=== PATIENT | male | born 1975 | race Caucasian/White ===

== ENCOUNTER 2021-08-02 14:48 | Inpatient (IN) | payer OTHER, SELFPAY ==
[2021-08-02] VITALS (7 sets, daily range): BP systolic 160–177; BP diastolic 71–94; PULSE 61–71; RESP 12–20; TEMP 36.6–37.1; O2SAT 98–100; BMI 35.4
--- NOTE | ~2021-08-02 | CT_ITS ---
EXAMINATION: CT HEAD WITHOUT CONTRAST CLINICAL INFORMATION: Multiple syncopal episodes COMPARISON: None TECHNIQUE: Contiguous axial imaging was performed from the skull base to vertex without intravenous administration of contrast. This CT examination was performed using dose optimization techniques as appropriate, variously including the following: *Automated exposure control *Adjustment of mA and/or kV according to patient size (this includes techniques or standardized protocols for targeted exams where dose is matched to indication/reason for exam; i.e. extremities or head) *Use of iterative reconstruction technique DLP: 788 mGy-cm FINDINGS: There is no evidence of acute intracranial hemorrhage or territorial infarction. No abnormal mass effect or midline shift is seen. Handy to white matter differentiation is well preserved. No extra-axial fluid collections are identified. The ventricles are normal in size. There is no abnormal attenuation within the brain parenchyma. The osseous structures and soft tissues are normal. The mastoid air cells and visualized portions of the paranasal sinuses are well aerated. CT/CT head/brain wo con IMPRESSION: No acute intracranial pathology.
--- NOTE | ~2021-08-02 | XR_ITS ---
EXAMINATION: XR CHEST CLINICAL INFORMATION: Near syncope COMPARISON: None TECHNIQUE: 2 views of the chest were obtained. FINDINGS: No significant abnormality is noted involving the heart, lungs, mediastinum, bony thorax or soft tissues. XR/XR chest 2V IMPRESSION: Unremarkable examination.
--- NOTE | 2021-08-02 15:02 | ECG_ITS ---
Test Reason : SYNCOPE Blood Pressure : / mmHG Vent. Rate : 067 BPM Atrial Rate : 067 BPM P-R Int : 180 ms QRS Dur : 092 ms QT Int : 390 ms P-R-T Axes : 027 007 068 degrees QTc Int : 412 ms Normal sinus rhythm Normal ECG When compared with ECG of 15-JUL-2006 10:38, No significant change was found Referred By: Generic ED Physician Electronically Signed By:ANNA QUIÑONEZ
[2021-08-02 15:32] LABS: MANUAL DIFF FLAG NO
[2021-08-02 15:35] LABS: Basophils Absolute Auto 0.1 X10*3/uL (0.0-0.2); Basophils Percent Auto 0.8 % (0-2); Eosinophils Absolute Auto 0.4 X10*3/uL (0.0-0.4); Eosinophils Percent Auto 4.3 % (0-4); Hematocrit 29.7 % (42.0-52.0); Hemoglobin 8.1 g/dl (14.0-18.0); Imm Gran Abs Auto 0.05 X10*3/uL (0.00-0.03); Imm Gran Pct Auto 0.6 % (0.0-0.4); Lymphocytes Absolute Auto 1.8 X10*3/uL (1.2-4.9); Lymphocytes Percent Auto 21.2 % (20-40); Mean Corpuscular HGB Conc 27.3 g/dl (31.0-36.0); Mean Corpuscular Hemoglobin 20.5 pg (27.0-33.0); Mean Corpuscular Volume 75.2 fL (80.0-98.0); Mean Platelet Volume 8.6 fL (9.4-12.4); Monocytes Absolute Auto 1.2 X10*3/uL (0.1-1.2); Monocytes Percent Auto 14.7 % (2-11); Neutrophils Percent Auto 58.4 % (45-73); Platelet Count 525 X10*3/uL (160-400); Red Blood Count 3.95 X10*6/uL (4.60-5.80); White Blood Count 8.5 X10*3/uL (4.8-10.8)
[2021-08-02 15:46] LABS: Anion Gap 13 (12-20); Blood Urea Nitrogen 10 mg/dL (9-16); Calcium 9.5 mg/dL (8.4-10.2); Carbon Dioxide 25 mmol/L (22-29); Chloride 104 mmol/L (96-108); Creatinine Clr Calc Pharmacy 130.8; Estimated Glomerular Filt Rate > 60; Glucose Random 105 mg/dL (60-115); Potassium 4.8 mmol/L (3.3-5.1); Sodium 137 mmol/L (135-145)
[2021-08-02 15:53] LABS: Troponin-I High Sensitivity < 3.5 ng/L (<3.5-35.0)
--- NOTE | 2021-08-02 18:19 | ED.SYNCOPE ---
HPI - Syncope General Chief Complaint: Syncope Stated Complaint: passing out/heart rate low Time Seen by Provider: 08/02/21 18:19 Source: patient Mode of arrival: ambulatory Limitations: no limitations History of Present Illness HPI narrative: This is a 45-year-old male no significant medical history presenting to the emergency department with complaints of near syncopal episodes multiple times per week for the last couple months. Patient tells me that he had an episode this morning. He tells me he thinks sometimes hot showers trigger these episodes. He tells me the last episode before this one was when he was snow blowing. tells me he begins to feel weak and faint and he usually lowers himself to the ground he tells me does not quite lose consciousness but he feels very very weak and like he is going to fall. He tells me that the only preceding symptom is test weakness he denies chest pain or shortness of breath. Patient reports that this happens anywhere between 2-3 times per week and has been happening more frequently than usual. Patient also mentions that over the past few months he feels as though he has become more short of breath than usual, particularly with exertion. He does not experience shortness of breath at rest. He has mentioned this to his primary care provider however he has not had a full workup done for this in the past. He denies any significant family or personal cardiac history. No seizure hx. He tells me that at this time he has no complaints. MD complaint: felt faint and almost passed out Onset (ago): month(s) (2) Prodromal symptoms: lightheaded and other (weakness) Witnessed: No Context: other Injuries sustained associated with event: none Current symptoms: none History: previous syncopal episode Treatments prior to arrival: none Related Data Allergies Allergy/AdvReac Type Severity Reaction Status Date / Time erythromycin base Allergy Severe RASH Unverified 02/03/20 16:18 [ERYTHROMYCIN BASE] Penicillins [PENICILLINS] Allergy Severe RASH Unverified 02/03/20 16:18 amoxicillin Allergy Unknown rash Verified 07/26/15 00:00 penicillin V Allergy Unknown rash Verified 07/26/15 00:00 Erythromycin Allergy Unknown rash Uncoded 07/26/15 00:00 Review of Systems Review of Systems: Constitutional : No Weight loss, No Fever, No Chills, No Fatigue, No Malaise ENT/Mouth : No sore throat, No Rhinorrhea Eyes: No Eye Pain, No Swelling, No Redness Cardiovascular : No Chest Pain, No SOB, No Dyspnea on Exertion, No Orthopnea, No Edema, No Palpitations Respiratory : No Cough, No Sputum, No Wheezing Gastrointestinal : No Nausea, No Vomiting, No Diarrhea, No Constipation, No abdominal Pain, No Hematochezia, No Melena Genitourinary : No Dysuria, No Urinary Frequency, No Hematuria, Musculoskeletal : No joint pain, No Myalgias, No Joint Swelling Skin : No Skin Lesions, No rash Neuro : No Weakness, No Numbness, No Dizziness, No Headache Psych : No Anxiety/Panic, No Depression All other systems reviewed and are negative Yes all other systems are reviewed and are negative [facility] Past Medical History Attestation statement: The following information was validated with the patient. Source: old records reviewed and nursing notes reviewed Medical History (Updated 08/02/21 @ 23:55 by BILL Wynn) HTN (hypertension) Syncopal episodes Social History Social History Alcohol intake: current Alcohol intake frequency: holidays/special occasions only Patient Tobacco Use Status: Never used Tobacco Use of substances other than those prescribed or required for medical reasons: No Advance Directives: Yes Advance Directives Information Provided: No Advance Directives on File: No Physical Exam Vital Signs: Vital Signs: Last Vital Signs Temp 98.8 F 08/02/21 22:51 Pulse 62 08/02/21 22:51 Resp 15 08/02/21 22:51 BP 177/85 H 08/02/21 22:51 Pulse Ox 98 08/02/21 22:51 BMI result Body Mass Index 35.4 Vital signs stable. Appearance: Alert.? Oriented X3.? No acute distress.? Head: Normocephalic, atraumatic, no step-offs or deformities Eyes: Pupils equal, round and reactive to light.? ENT: Pharynx normal.? Neck: Normal inspection.? Neck supple.? CVS: Normal heart rate and rhythm.? Pulses normal.? Respiratory: No respiratory distress.? Breath sounds normal.? Abdomen: Soft and nontender.? Skin: Skin warm and dry.? Normal skin color.? Normal skin turgor.? Extremities: No lower extremity edema.? No calf ttp. 5/5 strength to bilateral upper and lower extremities Back: No midline tenderness, no C-spine tenderness, full range of motion, no CVA tenderness bilaterally Neuro: Oriented X 3.? No motor deficit.? No sensory deficit. CN 2-12 intact . Normal [id number], [id number], normal tandem gait. Course Reevaluation(s) Reevaluation #1: Laboratory study show a microcytic anemia. Patient tells me that he has had this before. Chemistry with no acute electrolyte abnormalities. Urine clean. Urine toxicology with no acute findings. CT of the head with no acute findings. I will do a OBS Spoke to my attending about this who suggests patient be admitted. Time: 21:02 Reevaluation #2: OBS +. Patient showed labs on his phone it appears as though his anemia is worse than usual. Will transfuse with 1 unit of packed red blood cells. Patient will be admitted to the hospitalist team. Dr. Townsend for anemia, + occult blood, pre syncope, HAMILTON. Time: 23:55 MDM - Syncope MDM Narrative Medical decision making narrative: 1821 45 yo m pmhx htn presents w/ frequent syncopal episodes PE benign. Normal strength, normal cerebellar function, normal gait. Unlikely posterior stroke or ICH. Plan- labs imaging, obs Medical Records Attestation: I reviewed the patient's medical records. Lab Data Attestation: I reviewed the patient's lab results. Result diagrams: 08/02/21 15:26 08/02/21 15:26 Labs: Lab Results 08/02/21 08/02/21 08/02/21 Range/Units 15:26 15:26 15:26 WBC 8.5 (4.8-10.8) X10*3/uL RBC 3.95 L (4.60-5.80) X10*6/uL Hgb 8.1 L (14.0-18.0) g/dl Hct 29.7 L (42.0-52.0) % MCV 75.2 L (80.0-98.0) fL MCH 20.5 L (27.0-33.0) pg MCHC 27.3 L (31.0-36.0) g/dl RDW 15.0 (11.0-16.0) % Plt Count 525 H (160-400) X10*3/uL MPV 8.6 L (9.4-12.4) fL Immature Gran % (Auto) 0.6 H (0.0-0.4) % Neut % (Auto) 58.4 (45-73) % Lymph % (Auto) 21.2 (20-40) % [place] % (Auto) 14.7 H (2-11) % Eos % (Auto) 4.3 H (0-4) % Baso % (Auto) 0.8 (0-2) % Lymph # (Auto) 1.8 (1.2-4.9) X10*3/uL [place] # (Auto) 1.2 (0.1-1.2) X10*3/uL Eos # (Auto) 0.4 (0.0-0.4) X10*3/uL Baso # (Auto) 0.1 (0.0-0.2) X10*3/uL Abs Immat Gran (auto) 0.05 H (0.00-0.03) X10*3/uL Absolute Neuts (auto) 5.0 (2.0-8.3) x10*3/uL Absolute Nucleated RBC 0.000 (0.0-0.012) X10*3/uL Nucleated RBC % (auto) 0.0 (0.0-0.2) /100WBC Sodium 137 (135-145) mmol/L Potassium 4.8 (3.3-5.1) mmol/L Chloride 104 (96-108) mmol/L Carbon Dioxide 25 (22-29) mmol/L Anion Gap 13 (12-20) BUN 10 (9-16) mg/dL Creatinine 0.92 (0.5-1.4) mg/dL Estim Creat Clear Calc 130.8 Estimated GFR > 60 Random Glucose 105 (60-115) mg/dL Calcium 9.5 (8.4-10.2) mg/dL Troponin I High Sens < 3.5 (<3.5-35.0) ng/L Urine Color Urine Appearance Urine pH (5.0-8.0) Ur Specific [place] (1.005-1.025) Urine Protein (NEG-TRACE) MG/DL Urine Glucose (UA) (NEG) MG/DL Urine Ketones (NEG) MG/DL Urine Blood (NEG) Urine Nitrite (NEG) Ur Leukocyte Esterase (NEG) Urine RBC (0) /HPF Urine WBC (0-4) /HPF Ur Squamous Epith Cells /LPF Urine Bacteria /LPF Stool Occult Blood (NEGATIVE) Urine Opiates Screen (Not Detect) Urine Fentanyl Screen (Not Detect) Ur Barbiturates Screen (Not Detect) Ur Phencyclidine Scrn (Not Detect) Ur Amphetamines Screen (Not Detect) U Benzodiazepines Scrn (Not Detect) Urine Cocaine Screen (Not Detect) U Marijuana (THC) Screen (Not Detect) 08/02/21 08/02/21 08/02/21 Range/Units 19:23 19:23 23:32 WBC (4.8-10.8) X10*3/uL RBC (4.60-5.80) X10*6/uL Hgb (14.0-18.0) g/dl Hct (42.0-52.0) % MCV (80.0-98.0) fL MCH (27.0-33.0) pg MCHC (31.0-36.0) g/dl RDW (11.0-16.0) % Plt Count (160-400) X10*3/uL MPV (9.4-12.4) fL Immature Gran % (Auto) (0.0-0.4) % Neut % (Auto) (45-73) % Lymph % (Auto) (20-40) % [place] % (Auto) (2-11) % Eos % (Auto) (0-4) % Baso % (Auto) (0-2) % Lymph # (Auto) (1.2-4.9) X10*3/uL [place] # (Auto) (0.1-1.2) X10*3/uL Eos # (Auto) (0.0-0.4) X10*3/uL Baso # (Auto) (0.0-0.2) X10*3/uL Abs Immat Gran (auto) (0.00-0.03) X10*3/uL Absolute Neuts (auto) (2.0-8.3) x10*3/uL Absolute Nucleated RBC (0.0-0.012) X10*3/uL Nucleated RBC % (auto) (0.0-0.2) /100WBC Sodium (135-145) mmol/L Potassium (3.3-5.1) mmol/L Chloride (96-108) mmol/L Carbon Dioxide (22-29) mmol/L Anion Gap (12-20) BUN (9-16) mg/dL Creatinine (0.5-1.4) mg/dL Estim Creat Clear Calc Estimated GFR Random Glucose (60-115) mg/dL Calcium (8.4-10.2) mg/dL Troponin I High Sens (<3.5-35.0) ng/L Urine Color YELLOW Urine Appearance CLEAR Urine pH 6.0 (5.0-8.0) Ur Specific [place] <= 1.005 (1.005-1.025) Urine Protein NEG (NEG-TRACE) MG/DL Urine Glucose (UA) NEG (NEG) MG/DL Urine Ketones NEG (NEG) MG/DL Urine Blood NEG (NEG) Urine Nitrite NEG (NEG) Ur Leukocyte Esterase NEG (NEG) Urine RBC 0 (0) /HPF Urine WBC 0 (0-4) /HPF Ur Squamous Epith Cells TRACE /LPF Urine Bacteria NONE /LPF Stool Occult Blood POSITIVE (NEGATIVE) Urine Opiates Screen Not Detected (Not Detect) Urine Fentanyl Screen Not Detected (Not Detect) Ur Barbiturates Screen Not Detected (Not Detect) Ur Phencyclidine Scrn Not Detected (Not Detect) Ur Amphetamines Screen Not Detected (Not Detect) U Benzodiazepines Scrn Not Detected (Not Detect) Urine Cocaine Screen Not Detected (Not Detect) U Marijuana (THC) Screen Not Detected (Not Detect) Discharge Plan Discharge Clinical Impression: Pre-syncope, Guaiac positive stools, HAMILTON (dyspnea on exertion), Anemia Patient Disposition: Admitted As Inpatient Additional Instructions: Take your medications as prescribed. If you were prescribed antibiotics today, it is important that you take your medication to their entirety, do not skip any doses, do not finish them early. Follow-up with your primary care provider this week. Please follow up with Neurology as soon as possible. It is not safe for you to drive if you are having these episodes. Please refrain from driving until cleared by Neurology. Return to the emergency department with new or worsening symptoms. Such as fevers, chills, chest pain, shortness of breath, nausea, vomiting, dizziness, headache, vision changes, lethargy In case of emergency call 911
[2021-08-02 19:33] LABS: Appearance Urine CLEAR; Color Urine YELLOW; Glucose Urine UA NEG (NEG); Leukocyte Esterase Urine NEG (NEG); Nitrite Urine NEG (NEG); Specific Gravity - Urine <= 1.005 (1.005-1.025); Urine Blood NEG (NEG); Urine Ketones NEG (NEG); Urine Protein NEG (NEG-TRACE)
[2021-08-02 19:43] LABS: RBC Urine 0 /HPF (0); Squamous Epithelial Cell Urine TRACE /LPF; WBC Urine 0 /HPF (0-4)
[2021-08-02 19:47] LABS: Amphetamine Screen Urine Not Detected (Not Detect); Barbiturates, Urine Not Detected (Not Detect); Benzodiazepines Screen Urine Not Detected (Not Detect); Cannabinoid Screen Urine Not Detected (Not Detect); Cocaine Screen Urine Not Detected (Not Detect); Fentanyl, urine Not Detected (Not Detect); Opiate Screen Urine Not Detected (Not Detect); Phencyclidine Screen Urine Not Detected (Not Detect)
[2021-08-02 23:39] LABS: OBS Int Ctl Valid YES; OBS1 POSITIVE (NEGATIVE)
--- NOTE | 2021-08-02 23:40 | P.HPHOSP_ITS ---
History of Present Illness Date of Service: 08/02/21 Chief Complaint: HAMILTON 45-year-old male with a past medical history of hypertension, peptic ulcer disease presented to the hospital with a chief complaint of shortness of breath. Patient reported that over the past few weeks he has been having shortness of breath especially on exertion; mentioned that about 2 weeks ago he was blowing snow and felt very a tired, exhausted, short of breath; he went back into the house and rested with improvement in tiredness/shortness of breath. Over the past couple days he noted increased shortness of breath especially on exertion. Denies any cough or sputum production. Denies any chest pain palpitations lightheadedness or dizziness. Denies any blood in the stool. Denies any nausea vomiting or diarrhea. Review of all other systems is negative except mentioned above ER course: Per ER team patient's EKG was nonischemic, troponin negative; on labs noted to have hemoglobin of 8.1; stool guaiac was positive; ER team has ordered 1 unit of blood. [facility] Medical History (Updated 08/02/21 @ 23:55 by BILL Wynn) HTN (hypertension) Syncopal episodes Pertinent family history: Reviewed Social History Alcohol intake: current Alcohol intake frequency: holidays/special occasions only Patient Tobacco Use Status: Never used Tobacco Use of substances other than those prescribed or required for medical reasons: No Advance Directives: Yes Advance Directives Information Provided: No Advance Directives on File: No Meds Allergies Allergy/AdvReac Type Severity Reaction Status Date / Time erythromycin base Allergy Severe RASH Unverified 02/03/20 16:18 [ERYTHROMYCIN BASE] Penicillins [PENICILLINS] Allergy Severe RASH Unverified 02/03/20 16:18 amoxicillin Allergy Unknown rash Verified 07/26/15 00:00 penicillin V Allergy Unknown rash Verified 07/26/15 00:00 Erythromycin Allergy Unknown rash Uncoded 07/26/15 00:00 Active Medications: Current Medications Acetaminophen (Acetaminophen 325 Mg Tablet) 650 mg PO Q6H PRN PRN Reason: Pain, Mild (Pain Scale 1-3) Melatonin (Melatonin 3 Mg Tablet) 6 mg PO BEDTIME PRN PRN Reason: Insomnia Pantoprazole Sodium (Pantoprazole Sodium 40 Mg/10 Ml Vial) 40 mg IVPUSH DAILY@0630 [place] Senna (Sennosides 8.6 Mg Tablet) 17.2 mg PO BEDTIME PRN PRN Reason: Constipation Sodium Chloride (0.9 % Sodium Chloride Flush 3 Ml Syringe) 3 ml IVFLUSH QSHIFT [place]O Physical Exam Vital Signs and Narrative: Vital Signs: Last Vital Signs Temp 98.8 F 08/02/21 22:51 Pulse 62 08/02/21 22:51 Resp 15 08/02/21 22:51 BP 177/85 H 08/02/21 22:51 Pulse Ox 98 08/02/21 22:51 BMI result Body Mass Index 35.4 Gen: Appears be in no acute distress HEENT: NCAT, Moist mucosa. Pulmonary: Vesicular breath sounds, fair air entry CVS: Normal S1-S2 Abdomen: BS+, Soft, Nontender Extremities: Warm well perfused Neuro: Alert and awake. Results Labs CBC and Chem 7: 08/02/21 15:26 08/02/21 15:26 Labs: Laboratory Results - last 24 hr 08/02/21 08/02/21 08/02/21 15:26 15:26 19:23 MCV 75.2 L MCH 20.5 L MCHC 27.3 L RDW 15.0 Plt Count 525 H MPV 8.6 L Immature Gran % (Auto) 0.6 H Neut % (Auto) 58.4 Lymph % (Auto) 21.2 [place] % (Auto) 14.7 H Eos % (Auto) 4.3 H Baso % (Auto) 0.8 Lymph # (Auto) 1.8 [place] # (Auto) 1.2 Eos # (Auto) 0.4 Baso # (Auto) 0.1 Abs Immat Gran (auto) 0.05 H Absolute Neuts (auto) 5.0 Absolute Nucleated RBC 0.000 Nucleated RBC % (auto) 0.0 Anion Gap 13 Estim Creat Clear Calc 130.8 Estimated GFR > 60 Random Glucose 105 Calcium 9.5 Urine Color YELLOW Urine Appearance CLEAR Urine pH 6.0 Ur Specific [place] <= 1.005 Urine Protein NEG Urine Glucose (UA) NEG Urine Ketones NEG Urine Blood NEG Urine Nitrite NEG Ur Leukocyte Esterase NEG Urine RBC 0 Urine WBC 0 Ur Squamous Epith Cells TRACE Urine Bacteria NONE Urine Opiates Screen Urine Fentanyl Screen Ur Barbiturates Screen Ur Phencyclidine Scrn Ur Amphetamines Screen U Benzodiazepines Scrn Urine Cocaine Screen U Marijuana (THC) Screen 08/02/21 19:23 MCV MCH MCHC RDW Plt Count MPV Immature Gran % (Auto) Neut % (Auto) Lymph % (Auto) [place] % (Auto) Eos % (Auto) Baso % (Auto) Lymph # (Auto) [place] # (Auto) Eos # (Auto) Baso # (Auto) Abs Immat Gran (auto) Absolute Neuts (auto) Absolute Nucleated RBC Nucleated RBC % (auto) Anion Gap Estim Creat Clear Calc Estimated GFR Random Glucose Calcium Urine Color Urine Appearance Urine pH Ur Specific [place] Urine Protein Urine Glucose (UA) Urine Ketones Urine Blood Urine Nitrite Ur Leukocyte Esterase Urine RBC Urine WBC Ur Squamous Epith Cells Urine Bacteria Urine Opiates Screen Not Detected Urine Fentanyl Screen Not Detected Ur Barbiturates Screen Not Detected Ur Phencyclidine Scrn Not Detected Ur Amphetamines Screen Not Detected U Benzodiazepines Scrn Not Detected Urine Cocaine Screen Not Detected U Marijuana (THC) Screen Not Detected Imaging Radiologist's Impressions: Impressions Chest X-Ray 08/02/21 15:14 IMPRESSION: Unremarkable examination. Head CT 08/02/21 19:48 IMPRESSION: No acute intracranial pathology. Assessment and Plan (1) HAMILTON (dyspnea on exertion): Status: Acute (2) Anemia: Status: Acute (3) Guaiac positive stools: Status: Acute Plan 45-year-old male with a past medical history of hypertension, peptic ulcer disease, hernia presented to the hospital with a chief complaint of shortness of breath/ dyspnea on exertion. Noted to have anemia with guaiac-positive stool. Admitted for further management. Anemia: Symptomatic. Likely in the setting of GI bleed. Stool guaiac was positive. patient's baseline hemoglobin was 15 as noted from the labs in November of 2020. on presentation patient's hemoglobin is 8.1 Patient being transfused 1 unit of blood severe iron deficiency: On iron studies noted iron 16, TIBC 524, % saturation 3, ferritin 3. Patient being transfused 1upRBC currently. Patient would benefit iron sucrose IV infusion. Spoke to pharmacist overnight-> recs to be ordered in am. will defer to day hospitalist. mild thrombocytosis: Likely in setting of iron deficiency. Monitor platelet count. Dyspnea on exertion: initial EKG nonischemic troponin negative Cycle cardiac enzymes Echocardiogram cardiology consult History of hypertension: Patient's blood pressure is slightly on the higher side on presentation. 132/85. Continue home lisinopril 10mg DVT prophylaxis: SCD boots Code status: Full code Quality Stroke Does the patient have a stroke diagnosis?: No VTE Prior VTE?: No VTE Risk Level:: Medical - moderate - high VTE Device Contraindication: N/A - Device Ordered VTE Drug Contraindication: Treatment Not Indicated
[2021-08-03] VITALS (16 sets, daily range): BP systolic 124–165; BP diastolic 60–92; PULSE 56–86; RESP 13–20; TEMP 36.2–37.3; O2SAT 90–99
[2021-08-03 00:08] LABS: Iron 16 mcg/dL (45-160); Percent Iron Saturation 3 % (15-50); Total Iron Binding Capacity 524 mcg/dL (228-428); Unsaturated Iron Binding 508 ug/dL
[2021-08-03 00:40] LABS: Ferritin 3 ng/mL (20-250)
--- NOTE | 2021-08-03 04:27 | PC.NURSE ---
PRBC UP AND RUNNING PER EMAR. PT EDUCATED ON S/S OF POSSIBLE REACTION TO BLOOD. VS OBTAINED. PT DENIES COMPLAINTS AND REMAINS A&OX3, SKIN W/D. RESPIRATIONS N/L. WILL CONTINUE TO MONITOR PT.
--- NOTE | 2021-08-03 05:52 | PC.NURSE ---
PRBC INFUSED W/O DIFFICULTY. SITE INTACT.
[2021-08-03 07:00] LABS: MANUAL DIFF FLAG NO
[2021-08-03 07:07] LABS: Basophils Absolute Auto 0.1 X10*3/uL (0.0-0.2); Basophils Percent Auto 1.2 % (0-2); Eosinophils Absolute Auto 0.4 X10*3/uL (0.0-0.4); Eosinophils Percent Auto 4.9 % (0-4); Hematocrit 33.2 % (42.0-52.0); Hemoglobin 9.3 g/dl (14.0-18.0); Imm Gran Abs Auto 0.04 X10*3/uL (0.00-0.03); Imm Gran Pct Auto 0.5 % (0.0-0.4); Lymphocytes Absolute Auto 1.8 X10*3/uL (1.2-4.9); Lymphocytes Percent Auto 20.4 % (20-40); Mean Corpuscular Hemoglobin 21.6 pg (27.0-33.0); Mean Corpuscular Volume 77.2 fL (80.0-98.0); Mean Platelet Volume 9.1 fL (9.4-12.4); Monocytes Absolute Auto 1.3 X10*3/uL (0.1-1.2); Monocytes Percent Auto 14.8 % (2-11); Neutrophils Percent Auto 58.2 % (45-73); Platelet Count 534 X10*3/uL (160-400); Red Cell Distribution Width 15.9 % (11.0-16.0); White Blood Count 8.6 X10*3/uL (4.8-10.8)
--- NOTE | 2021-08-03 07:17 | PHA.MEDREC ---
Pharmacy Consult ? Medication Reconciliation Pharmacy has reviewed the medication reconciliation completed by Anai. There are no remarkable issues for provider's attention. Zahra Fuller, PharmD
[2021-08-03 07:20] LABS: Anion Gap 12 (12-20); Blood Urea Nitrogen 11 mg/dL (9-16); Calcium 9.3 mg/dL (8.4-10.2); Carbon Dioxide 25 mmol/L (22-29); Chloride 107 mmol/L (96-108); Creatinine Clr Calc Pharmacy 122.8; Estimated Glomerular Filt Rate > 60; Glucose Random 103 mg/dL (60-115); Potassium 4.8 mmol/L (3.3-5.1); Sodium 139 mmol/L (135-145)
[2021-08-03 07:31] LABS: Troponin-I High Sensitivity 4.3 ng/L (<3.5-35.0)
--- NOTE | 2021-08-03 07:49 | P.CNGI_ITS ---
History of Present Illness Data of Consult Service Date: 08/03/21 Requesting physician: Alonso Townsend Primary Care Provider: Teri Johnson MD HPI Reason for consult: anemia, Heme positive stools ?45 YM with hypertension, peptic ulcer disease came to [facility] ED complaint of shortness of breath.? Patient reported that over the past few weeks he has been having shortness of breath especially on exertion; He mentioned that about 2 weeks ago he was blowing snow and felt very a tired, exhausted, short of breath; he went back into the house and rested with improvement in tiredness/shortness of breath.? He feels exhausted after he takes a hot shower - feels better after resting. Over the past couple days he noted increased shortness of breath especially on exertion.? Patient denies any abdominal pain, recent change in appetite, weight or bowel movements. Denies any change in stool color or blood in the stool.? Pt denies any cough or sputum production.? Denies any chest pain palpitations lightheadedness or dizziness.? Denies any nausea vomiting or diarrhea.? Patient denies major cardiac or pulmonary problems. He admits to loud snoring and denies being tested for sleep apnea Denies being on chronic anticoagulation. Patient denies smoking, he takes alcohol 2-3 beers once a week Patient has 2 children - sinus 21 and daughter is 13 years Patient denies known family history of colon polyps, colon cancer or other GI malignancies. PAST EGD/COLONOSCOPY: Pt reports having an EGD and colonoscopy x 2 in the past - last done 2 yrs ago at [facility] Per patient EGD showed an ulcer due to apsirin use - records have been requested. ER course: Per ER? team patient's EKG was nonischemic, troponin negative; on labs noted to have hemoglobin of 8.1; stool guaiac was positive; ER team has ordered 1 unit of blood. Post transfusion H & H improved to 9.3 & 33.2 Review of Systems Review of Systems: Constitutional : No Weight loss, No Fever, No Chills, No Fatigue, No Malaise ENT/Mouth : No sore throat, No Rhinorrhea Eyes: No Eye Pain, No Swelling, No Redness Cardiovascular : No Chest Pain, No SOB, No Dyspnea on Exertion, No Orthopnea, No Edema, No Palpitations Respiratory : No Cough, No Sputum, No Wheezing Gastrointestinal : No Nausea, No Vomiting, No Diarrhea, No Constipation, No abdominal Pain, No Hematochezia, No Melena Genitourinary : No Dysuria, No Urinary Frequency, No Hematuria, Musculoskeletal : No joint pain, No Myalgias, No Joint Swelling Skin : No Skin Lesions, No rash Neuro : No Weakness, No Numbness, No Dizziness, No Headache Psych : No Anxiety/Panic, No Depression All other systems reviewed and are negative Yes all other systems are reviewed and are negative [facility] Past Medical History Medical History (Updated 08/03/21 @ 10:20 by Brice Ng MD) HTN (hypertension) Syncopal episodes Social History Social History Alcohol intake: current Alcohol intake frequency: holidays/special occasions only Patient Tobacco Use Status: Never used Tobacco Advance Directives Date on File: 08/03/21 service: No Current occupational status: employed Meds Allergies Allergy/AdvReac Type Severity Reaction Status Date / Time erythromycin base Allergy Severe RASH Unverified 02/03/20 16:18 [ERYTHROMYCIN BASE] Penicillins [PENICILLINS] Allergy Severe RASH Unverified 02/03/20 16:18 amoxicillin Allergy Unknown rash Verified 07/26/15 00:00 penicillin V Allergy Unknown rash Verified 07/26/15 00:00 Erythromycin Allergy Unknown rash Uncoded 07/26/15 00:00 Active Medications: Current Medications Acetaminophen (Acetaminophen 325 Mg Tablet) 650 mg PO Q6H PRN PRN Reason: Pain, Mild (Pain Scale 1-3) Lisinopril (Lisinopril 10 Mg Tablet) 10 mg PO DAILY [facility]; Protocol Melatonin (Melatonin 3 Mg Tablet) 6 mg PO BEDTIME PRN PRN Reason: Insomnia Pantoprazole Sodium (Pantoprazole Sodium 40 Mg/10 Ml Vial) 40 mg IVPUSH BID [facility] Last Admin: 08/03/21 06:37 Dose: Not Given Documented by: Pharmacy Consult (Consult Rx Perform Med Rec) 1 each MISCELLANE ONCE PRN PRN Reason: Consult order Senna (Sennosides 8.6 Mg Tablet) 17.2 mg PO BEDTIME PRN PRN Reason: Constipation Sodium Chloride (0.9 % Sodium Chloride Flush 3 Ml Syringe) 3 ml IVFLUSH QSHIFT [facility] Last Admin: 08/03/21 01:48 Dose: Not Given Documented by: Sodium Chloride (0.9 % Sodium Chloride Flush 3 Ml Syringe) 3 ml IVFLUSH QSHIFT [facility] Home Medications Medication Instructions Recorded Confirmed Last Taken Type lisinopril 10 mg tablet 1 tab PO DAILY 08/03/21 08/03/21 Unknown History Physical Exam Vital Signs: Vital Signs: Last Vital Signs Temp 98.0 F 08/03/21 05:47 Pulse 60 08/03/21 06:30 Resp 16 08/03/21 06:30 BP 133/64 08/03/21 06:30 Pulse Ox 99 08/03/21 06:30 BMI result Body Mass Index 35.4 Const: General: healthy appearing and no acute distress Nutritional Appearance: obese Orientation/consciousness: patient oriented x3 Limitations: no limitations HENMT: Head: Yes normal to inspection Ears: hearing grossly normal bilaterally Mouth: Normal oral and palatal mucosa present Eyes: Sclerae: sclerae normal Pupils: Equal, round and reactive pupils present Neck: Neck: Yes normal visual inspection Chest: Chest palpation & inspection: normal inspection of the chest Resp: Effort & Inspection: normal respiratory effort Auscultation: clear to auscultation bilaterally Cardio: Palpation: normal PMI Rate: regular rate Rhythm: regular rhythm Heart sounds: S1 normal heart sound present, S2 normal heart sound present and no murmurs GI: Palpation (GI): Soft to palpation, nontender and No hepatosplenomegaly present Auscultation: normal bowel sounds Rectal Exam - Male: Yes deferred Skin: General skin exam: no rashes or lesions noted Neuro: General: patient oriented x3, gait normal and moves all extremities Cranial nerves: Yes Equal, round and reactive pupils present Psych: Appearance: grossly normal Mental Status: mental status grossly normal Results Labs CBC & Chem 7: 08/03/21 06:49 08/03/21 06:49 Labs: Short CBC 08/02/21 08/03/21 Range/Units 15:26 06:49 WBC 8.5 8.6 (4.8-10.8) X10*3/uL Hgb 8.1 L 9.3 L (14.0-18.0) g/dl Hct 29.7 L 33.2 L (42.0-52.0) % Plt Count 525 H 534 H (160-400) X10*3/uL BMP 08/02/21 08/03/21 15:26 06:49 Sodium 137 139 Potassium 4.8 4.8 Chloride 104 107 Carbon Dioxide 25 25 BUN 10 11 Creatinine 0.92 0.98 Calcium 9.5 9.3 Urine 08/02/21 Range/Units 19:23 Urine Color YELLOW Urine Appearance CLEAR Urine pH 6.0 (5.0-8.0) Ur Specific [place] <= 1.005 (1.005-1.025) Urine Protein NEG (NEG-TRACE) MG/DL Urine Glucose (UA) NEG (NEG) MG/DL Assessment and Plan (1) Acute blood loss anemia: Status: Acute (2) Guaiac positive stools: Status: Acute Plan 45 YM admitted with iron deficiency anemia and Hemoccult-positive stools. Patient reports having an upper endoscopy and a colonoscopy 2-3 years ago at [facility] - records have been requested. Upper endoscopy showed peptic ulcer disease attributed to aspirin use. RECOMMENDATIONS: 1. Follow H & H daily and transfuse prn 2. Proceed with upper endoscopy to rule out recurrent peptic ulcer disease. Procedure and potential complications including bleeding, perforation, reaction to anesthetic and aspiration were reviewed with the patient. 3. If no source of anemia found on EGD, patient will be scheduled for and a capsule endoscopy as an outpatient. Procedures Date of Service Date of Service: 08/03/21
[2021-08-03 08:23] LABS: Folate 13.9 ng/mL (> or = 4.0); Vitamin B12 219 pg/mL (200-900)
[2021-08-03] MEDS: Pantoprazole Sodium 40 MG/10 ML VIAL IVPUSH (08:53)
[2021-08-03] MEDS: lisinopriL 10 MG TABLET PO (08:53)
[2021-08-03] MEDS: 0.9 % Sodium Chloride Flush 3 ML SYRINGE IVFLUSH ×2 (08:56)
[2021-08-03 08:59] LABS: COVID-19 Test Negative (Negative)
--- NOTE | 2021-08-03 10:12 | P.PNIM_ITS ---
Subjective Subjective Date of Service: 08/03/21 Interval History: CC: f/u on symptomatic anemia Interval history: no active bleed, no sob, no chest pain Review of Systems no HAMILTON no rectal bleed Physical Exam Vital Signs: Vital Signs: Last Vital Signs Temp 98.0 F 08/03/21 05:47 Pulse 61 08/03/21 08:53 Resp 16 08/03/21 06:30 BP 156/81 H 08/03/21 08:53 Pulse Ox 99 08/03/21 06:30 BMI result Body Mass Index 35.4 Const: Other: General: AO X 3, no acute distress Resp: CTA bilateral CVS: S1,S2,RRR GI: +BS, NT, no distention Skin: No rash Neuro: motor grossly intact Psych: appropriate affect Objective Data Active Medications Acetaminophen (Acetaminophen 325 Mg Tablet) 650 mg PO Q6H PRN PRN Reason: Pain, Mild (Pain Scale 1-3) Lisinopril (Lisinopril 10 Mg Tablet) 10 mg PO DAILY [facility]; Protocol Last Admin: 08/03/21 08:53 Dose: 10 mg Documented by: ARACELI Melatonin (Melatonin 3 Mg Tablet) 6 mg PO BEDTIME PRN PRN Reason: Insomnia Pantoprazole Sodium (Pantoprazole Sodium 40 Mg/10 Ml Vial) 40 mg IVPUSH BID [facility] Last Admin: 08/03/21 08:53 Dose: 40 mg Documented by: ARACELI Pharmacy Consult (Consult Rx Perform Med Rec) 1 each MISCELLANE ONCE PRN PRN Reason: Consult order Senna (Sennosides 8.6 Mg Tablet) 17.2 mg PO BEDTIME PRN PRN Reason: Constipation Sodium Chloride (0.9 % Sodium Chloride Flush 3 Ml Syringe) 3 ml IVFLUSH [facility] Last Admin: 08/03/21 08:56 Dose: 3 ml Documented by: ARACELI Sodium Chloride (0.9 % Sodium Chloride Flush 3 Ml Syringe) 3 ml IVFLUSH [facility] Last Admin: 08/03/21 08:56 Dose: 3 ml Documented by: ARACELI Labs CBC & Chem 7: 08/03/21 06:49 08/03/21 06:49 Labs: Laboratory Results - last 24 hr 03/17/22 03/17/22 03/17/22 15:26 15:26 19:23 MCV 75.2 L MCH 20.5 L MCHC 27.3 L RDW 15.0 Plt Count 525 H MPV 8.6 L Immature Gran % (Auto) 0.6 H Neut % (Auto) 58.4 Lymph % (Auto) 21.2 [place] % (Auto) 14.7 H Eos % (Auto) 4.3 H Baso % (Auto) 0.8 Lymph # (Auto) 1.8 [place] # (Auto) 1.2 Eos # (Auto) 0.4 Baso # (Auto) 0.1 Abs Immat Gran (auto) 0.05 H Absolute Neuts (auto) 5.0 Absolute Nucleated RBC 0.000 Nucleated RBC % (auto) 0.0 Anion Gap 13 Estim Creat Clear Calc 130.8 Estimated GFR > 60 Random Glucose 105 Calcium 9.5 Iron 16 L TIBC 524 H % Saturation 3 L Unsat Iron Binding 508 Ferritin 3 L Vitamin B12 Folate Urine Color YELLOW Urine Appearance CLEAR Urine pH 6.0 Ur Specific [place] <= 1.005 Urine Protein NEG Urine Glucose (UA) NEG Urine Ketones NEG Urine Blood NEG Urine Nitrite NEG Ur Leukocyte Esterase NEG Urine RBC 0 Urine WBC 0 Ur Squamous Epith Cells TRACE Urine Bacteria NONE Stool Occult Blood Urine Opiates Screen Urine Fentanyl Screen Ur Barbiturates Screen Ur Phencyclidine Scrn Ur Amphetamines Screen U Benzodiazepines Scrn Urine Cocaine Screen U Marijuana (THC) Screen COVID-19 (SARAY) COVID-19 Clin Com Blood Type Antibody Screen Crossmatch 08/02/21 08/02/21 08/03/21 19:23 23:32 00:52 MCV MCH MCHC RDW Plt Count MPV Immature Gran % (Auto) Neut % (Auto) Lymph % (Auto) [place] % (Auto) Eos % (Auto) Baso % (Auto) Lymph # (Auto) [place] # (Auto) Eos # (Auto) Baso # (Auto) Abs Immat Gran (auto) Absolute Neuts (auto) Absolute Nucleated RBC Nucleated RBC % (auto) Anion Gap Estim Creat Clear Calc Estimated GFR Random Glucose Calcium Iron TIBC % Saturation Unsat Iron Binding Ferritin Vitamin B12 Folate Urine Color Urine Appearance Urine pH Ur Specific [place] Urine Protein Urine Glucose (UA) Urine Ketones Urine Blood Urine Nitrite Ur Leukocyte Esterase Urine RBC Urine WBC Ur Squamous Epith Cells Urine Bacteria Stool Occult Blood POSITIVE Urine Opiates Screen Not Detected Urine Fentanyl Screen Not Detected Ur Barbiturates Screen Not Detected Ur Phencyclidine Scrn Not Detected Ur Amphetamines Screen Not Detected U Benzodiazepines Scrn Not Detected Urine Cocaine Screen Not Detected U Marijuana (THC) Screen Not Detected COVID-19 (SARAY) COVID-19 Clin Com Blood Type O Positive Antibody Screen NEGATIVE Crossmatch See Detail 08/03/21 08/03/21 08/03/21 06:49 06:49 06:49 MCV 77.2 L MCH 21.6 L MCHC 28.0 L RDW 15.9 Plt Count 534 H MPV 9.1 L Immature Gran % (Auto) 0.5 H Neut % (Auto) 58.2 Lymph % (Auto) 20.4 [place] % (Auto) 14.8 H Eos % (Auto) 4.9 H Baso % (Auto) 1.2 Lymph # (Auto) 1.8 [place] # (Auto) 1.3 H Eos # (Auto) 0.4 Baso # (Auto) 0.1 Abs Immat Gran (auto) 0.04 H Absolute Neuts (auto) 5.0 Absolute Nucleated RBC 0.000 Nucleated RBC % (auto) 0.0 Anion Gap 12 Estim Creat Clear Calc 122.8 Estimated GFR > 60 Random Glucose 103 Calcium 9.3 Iron TIBC % Saturation Unsat Iron Binding Ferritin Vitamin B12 219 Folate 13.9 Urine Color Urine Appearance Urine pH Ur Specific [place] Urine Protein Urine Glucose (UA) Urine Ketones Urine Blood Urine Nitrite Ur Leukocyte Esterase Urine RBC Urine WBC Ur Squamous Epith Cells Urine Bacteria Stool Occult Blood Urine Opiates Screen Urine Fentanyl Screen Ur Barbiturates Screen Ur Phencyclidine Scrn Ur Amphetamines Screen U Benzodiazepines Scrn Urine Cocaine Screen U Marijuana (THC) Screen COVID-19 (SARAY) COVID-19 Clin Com Blood Type Antibody Screen Crossmatch 08/03/21 08:38 MCV MCH MCHC RDW Plt Count MPV Immature Gran % (Auto) Neut % (Auto) Lymph % (Auto) [place] % (Auto) Eos % (Auto) Baso % (Auto) Lymph # (Auto) [place] # (Auto) Eos # (Auto) Baso # (Auto) Abs Immat Gran (auto) Absolute Neuts (auto) Absolute Nucleated RBC Nucleated RBC % (auto) Anion Gap Estim Creat Clear Calc Estimated GFR Random Glucose Calcium Iron TIBC % Saturation Unsat Iron Binding Ferritin Vitamin B12 Folate Urine Color Urine Appearance Urine pH Ur Specific [place] Urine Protein Urine Glucose (UA) Urine Ketones Urine Blood Urine Nitrite Ur Leukocyte Esterase Urine RBC Urine WBC Ur Squamous Epith Cells Urine Bacteria Stool Occult Blood Urine Opiates Screen Urine Fentanyl Screen Ur Barbiturates Screen Ur Phencyclidine Scrn Ur Amphetamines Screen U Benzodiazepines Scrn Urine Cocaine Screen U Marijuana (THC) Screen COVID-19 (SARAY) Negative COVID-19 Clin Com See Note Blood Type Antibody Screen Crossmatch Assessment and Plan (1) Guaiac positive stools: Status: Acute (2) HTN (hypertension): Status: Acute (3) Acute blood loss anemia: Status: Acute Plan 45-year-old male with a past medical history of hypertension, peptic ulcer disease, hernia presented to the hospital with a chief complaint of shortness of breath/ dyspnea on exertion.? Noted to have anemia with guaiac-positive stool.?Last colonosocopy 2 years ago #Acute blood loss anemia that is symptomatic, +FOBT, suspect upper GI Bleed. No active bleed #Iron deficiency anemia -IV PPI, EGD today, No NSAID -Iron replacement IV x 1 then orally at discharge #mild thrombocytosis:??Likely in setting of iron deficiency.? Monitor platelet count. #HAMILTON--due to severe anemia, nl BNP, no evidence of cardiac ischemia, no indication for cardiac eval at this time. #HTN--resume Lisinopril DVT prophylaxis:? SCD boots Code status:? Full code Need for inpatient: Severe symptomatic anemia, GI Bleed needing further work up Quality Stroke Does the patient have a stroke diagnosis?: No VTE Prior VTE?: No VTE Risk Level:: Medical - moderate - high VTE Device Contraindication: N/A - Device Ordered VTE Drug Contraindication: Treatment Not Indicated
--- NOTE | 2021-08-03 10:32 | MHC.CM.PN ---
PT REPORTS HE LIVES WITH HIS FATHER AND IS INDEPENDENT WITH CARE PT DENIES USE OF DME AND HAS NO HOME SERVICES PT REPORTS HE HAS A HCP COMPLETED NAMING HIS FATHER HIS AGENT PT REPORTS BEING COVID-19 VACCINATED WITH PFIZER X 3 PT WILL DC HOME WITH NO SERVICES PT WILL DRIVE HIMSELF AT DC
[2021-08-03] MEDS: Sodium Ferric Gluconat/Sucrose 125 MG in 0.9 % Sodium Chloride 100 ML 100 MG IV (12:06)
--- NOTE | 2021-08-03 12:14 | PC.NURSE ---
Pt A&Ox4, offers no complaints of pain at this time. Aware of NPO status until after Endoscopy. Awaiting SSS to call for report and update on time of Endo, call scanlon within reach, NSR on monitor, pt ambulatory with no assistance. Will continue to monitor.
--- NOTE | 2021-08-03 13:14 | PC.NURSE ---
Skin/wound assessment completed. Patient has no skin issues noted at this time.
--- NOTE | 2021-08-03 14:13 | HO.ANESPROP2 ---
HPI - Anesthesia Eval Consult details Narrative: Symptommatic anmia PMF Active Problems Active Problems: All Active Problems (Updated 08/03/21 @ 10:20 by Brice Ng MD) Acute blood loss anemia (Acute) Guaiac positive stools (Acute) HTN (hypertension) (Acute) Anemia (Acute) HAMILTON (dyspnea on exertion) (Acute) Pre-syncope (Acute) Past Medical History Medical History (Updated 08/03/21 @ 10:20 by Brice Ng MD) HTN (hypertension) Syncopal episodes Family History Family history of problems with anesthesia: No Surgical History History of Problems with Anesthesia: No Social History Social History Alcohol intake: current Alcohol intake frequency: holidays/special occasions only Patient Tobacco Use Status: Never used Tobacco Use of substances other than those prescribed or required for medical reasons: No Are you DNR?: No Advance Directives: Yes Advance Directives Information Provided: No Advance Directives on File: No Advance Directives Date on File: 08/03/21 service: No Current occupational status: employed Meds Allergies Allergy/AdvReac Type Severity Reaction Status Date / Time erythromycin base Allergy Severe RASH Unverified 02/03/20 16:18 [ERYTHROMYCIN BASE] Penicillins [PENICILLINS] Allergy Severe RASH Unverified 02/03/20 16:18 amoxicillin Allergy Unknown rash Verified 07/26/15 00:00 penicillin V Allergy Unknown rash Verified 07/26/15 00:00 Erythromycin Allergy Unknown rash Uncoded 07/26/15 00:00 Active Medications: Current Medications Acetaminophen (Acetaminophen 325 Mg Tablet) 650 mg PO Q6H PRN PRN Reason: Pain, Mild (Pain Scale 1-3) Lisinopril (Lisinopril 10 Mg Tablet) 10 mg PO DAILY [facility]; Protocol Last Admin: 08/03/21 08:53 Dose: 10 mg Documented by: Melatonin (Melatonin 3 Mg Tablet) 6 mg PO BEDTIME PRN PRN Reason: Insomnia Pantoprazole Sodium (Pantoprazole Sodium 40 Mg/10 Ml Vial) 40 mg IVPUSH BID [facility] Last Admin: 08/03/21 08:53 Dose: 40 mg Documented by: Pharmacy Consult (Consult Rx Perform Med Rec) 1 each MISCELLANE ONCE PRN PRN Reason: Consult order Senna (Sennosides 8.6 Mg Tablet) 17.2 mg PO BEDTIME PRN PRN Reason: Constipation Sodium Chloride (0.9 % Sodium Chloride Flush 3 Ml Syringe) 3 ml IVFLUSH [facility] Last Admin: 08/03/21 08:56 Dose: 3 ml Documented by: Sodium Chloride (0.9 % Sodium Chloride Flush 3 Ml Syringe) 3 ml IVFLUSH [facility] Last Admin: 08/03/21 08:56 Dose: 3 ml Documented by: Home Medications Medication Instructions Recorded Confirmed Last Taken Type lisinopril 10 mg tablet 1 tab PO DAILY 08/03/21 08/03/21 Unknown History Exam Exam Date and Time: August 03, 2021 1413 Height,Weight and Vital Signs: Height 5 ft 11 in Weight 115.212 kg Last Vital Signs Temp 97.7 F 08/03/21 14:02 Pulse 59 08/03/21 14:02 Resp 16 08/03/21 14:02 BP 131/92 H 08/03/21 14:02 Pulse Ox 98 08/03/21 14:02 Pertinent Lab Results Pertinent Lab Results: Laboratory Tests 08/02/21 08/02/21 08/02/21 15:26 15:26 15:26 WBC 8.5 RBC 3.95 L Hgb 8.1 L Hct 29.7 L MCV 75.2 L MCH 20.5 L MCHC 27.3 L RDW 15.0 Plt Count 525 H MPV 8.6 L Immature Gran % (Auto) 0.6 H Neut % (Auto) 58.4 Lymph % (Auto) 21.2 [place] % (Auto) 14.7 H Eos % (Auto) 4.3 H Baso % (Auto) 0.8 Lymph # (Auto) 1.8 [place] # (Auto) 1.2 Eos # (Auto) 0.4 Baso # (Auto) 0.1 Abs Immat Gran (auto) 0.05 H Absolute Neuts (auto) 5.0 Absolute Nucleated RBC 0.000 Nucleated RBC % (auto) 0.0 Sodium 137 Potassium 4.8 Chloride 104 Carbon Dioxide 25 Anion Gap 13 BUN 10 Creatinine 0.92 Estim Creat Clear Calc 130.8 Estimated GFR > 60 Random Glucose 105 Calcium 9.5 Iron 16 L TIBC 524 H % Saturation 3 L Unsat Iron Binding 508 Ferritin 3 L Troponin I High Sens < 3.5 Vitamin B12 Folate Urine Color Urine Appearance Urine pH Ur Specific [place] Urine Protein Urine Glucose (UA) Urine Ketones Urine Blood Urine Nitrite Ur Leukocyte Esterase Urine RBC Urine WBC Ur Squamous Epith Cells Urine Bacteria Stool Occult Blood Urine Opiates Screen Urine Fentanyl Screen Ur Barbiturates Screen Ur Phencyclidine Scrn Ur Amphetamines Screen U Benzodiazepines Scrn Urine Cocaine Screen U Marijuana (THC) Screen COVID-19 (SARAY) COVID-19 Clin Com Blood Type Antibody Screen Crossmatch 08/02/21 08/02/21 08/02/21 19:23 19:23 23:32 WBC RBC Hgb Hct MCV MCH MCHC RDW Plt Count MPV Immature Gran % (Auto) Neut % (Auto) Lymph % (Auto) [place] % (Auto) Eos % (Auto) Baso % (Auto) Lymph # (Auto) [place] # (Auto) Eos # (Auto) Baso # (Auto) Abs Immat Gran (auto) Absolute Neuts (auto) Absolute Nucleated RBC Nucleated RBC % (auto) Sodium Potassium Chloride Carbon Dioxide Anion Gap BUN Creatinine Estim Creat Clear Calc Estimated GFR Random Glucose Calcium Iron TIBC % Saturation Unsat Iron Binding Ferritin Troponin I High Sens Vitamin B12 Folate Urine Color YELLOW Urine Appearance CLEAR Urine pH 6.0 Ur Specific [place] <= 1.005 Urine Protein NEG Urine Glucose (UA) NEG Urine Ketones NEG Urine Blood NEG Urine Nitrite NEG Ur Leukocyte Esterase NEG Urine RBC 0 Urine WBC 0 Ur Squamous Epith Cells TRACE Urine Bacteria NONE Stool Occult Blood POSITIVE Urine Opiates Screen Not Detected Urine Fentanyl Screen Not Detected Ur Barbiturates Screen Not Detected Ur Phencyclidine Scrn Not Detected Ur Amphetamines Screen Not Detected U Benzodiazepines Scrn Not Detected Urine Cocaine Screen Not Detected U Marijuana (THC) Screen Not Detected COVID-19 (SARAY) COVID-19 Clin Com Blood Type Antibody Screen Crossmatch 08/03/21 08/03/21 08/03/21 00:52 06:49 06:49 WBC 8.6 RBC 4.30 L Hgb 9.3 L Hct 33.2 L MCV 77.2 L MCH 21.6 L MCHC 28.0 L RDW 15.9 Plt Count 534 H MPV 9.1 L Immature Gran % (Auto) 0.5 H Neut % (Auto) 58.2 Lymph % (Auto) 20.4 [place] % (Auto) 14.8 H Eos % (Auto) 4.9 H Baso % (Auto) 1.2 Lymph # (Auto) 1.8 [place] # (Auto) 1.3 H Eos # (Auto) 0.4 Baso # (Auto) 0.1 Abs Immat Gran (auto) 0.04 H Absolute Neuts (auto) 5.0 Absolute Nucleated RBC 0.000 Nucleated RBC % (auto) 0.0 Sodium 139 Potassium 4.8 Chloride 107 Carbon Dioxide 25 Anion Gap 12 BUN 11 Creatinine 0.98 Estim Creat Clear Calc 122.8 Estimated GFR > 60 Random Glucose 103 Calcium 9.3 Iron TIBC % Saturation Unsat Iron Binding Ferritin Troponin I High Sens Vitamin B12 Folate Urine Color Urine Appearance Urine pH Ur Specific [place] Urine Protein Urine Glucose (UA) Urine Ketones Urine Blood Urine Nitrite Ur Leukocyte Esterase Urine RBC Urine WBC Ur Squamous Epith Cells Urine Bacteria Stool Occult Blood Urine Opiates Screen Urine Fentanyl Screen Ur Barbiturates Screen Ur Phencyclidine Scrn Ur Amphetamines Screen U Benzodiazepines Scrn Urine Cocaine Screen U Marijuana (THC) Screen COVID-19 (SARAY) COVID-19 Clin Com Blood Type O Positive Antibody Screen NEGATIVE Crossmatch See Detail 08/03/21 08/03/21 08/03/21 06:49 06:49 08:38 WBC RBC Hgb Hct MCV MCH MCHC RDW Plt Count MPV Immature Gran % (Auto) Neut % (Auto) Lymph % (Auto) [place] % (Auto) Eos % (Auto) Baso % (Auto) Lymph # (Auto) [place] # (Auto) Eos # (Auto) Baso # (Auto) Abs Immat Gran (auto) Absolute Neuts (auto) Absolute Nucleated RBC Nucleated RBC % (auto) Sodium Potassium Chloride Carbon Dioxide Anion Gap BUN Creatinine Estim Creat Clear Calc Estimated GFR Random Glucose Calcium Iron TIBC % Saturation Unsat Iron Binding Ferritin Troponin I High Sens 4.3 Vitamin B12 219 Folate 13.9 Urine Color Urine Appearance Urine pH Ur Specific [place] Urine Protein Urine Glucose (UA) Urine Ketones Urine Blood Urine Nitrite Ur Leukocyte Esterase Urine RBC Urine WBC Ur Squamous Epith Cells Urine Bacteria Stool Occult Blood Urine Opiates Screen Urine Fentanyl Screen Ur Barbiturates Screen Ur Phencyclidine Scrn Ur Amphetamines Screen U Benzodiazepines Scrn Urine Cocaine Screen U Marijuana (THC) Screen COVID-19 (SARAY) Negative COVID-19 Clin Com See Note Blood Type Antibody Screen Crossmatch Airway Mallampati Class: III TM Dist: >3cm Neck ROM: Full Loose/Missing/Broken Teeth: Yes Heart: [id number] Lungs: cta b/l Assessment and Plan Assessment Anesthesia Assessment: Anesthesia Plan Discussed and Chart Reviewed Final Anesthetic Review Family History of Problems with Anesthesia: No History of Problems with Anesthesia: No NPO: Yes ASA Class: III Final Preanesthetic Review: No Changes in Pt Med Stat, Meds/Allgs Chart Reviewed, Consent Obtained/Reviewed and Anes Risks/Benef Reviewed Patient Risk: Intermediate Procedure Risk: Intermediate Anesthetic Plan Anesthetic Plan: MAC: and Agree w/ Assess. and Plan Disposition: Standard PACU
--- NOTE | 2021-08-03 14:30 | P.BOP_ITS ---
Brief Operative Note Date of Service: 08/03/21 Pre-op diagnosis: Iron def anemia, heme positive stools Post-op diagnosis: other (GERD with esophageal ulcer at GE junction) Procedure: FLEXIBLE TRANSORAL UPPER GASTROINTESTINAL ENDOSCOPY WITH BIOPSIES Consent: Indications for the procedure and potential complications of bleeding, perforation, reaction to medications and missed diagnosis were discussed with the patient and informed consent was obtained. Instrument: Olympus GIF H 190 mid size upper endoscope Monitoring: Vital signs and clinical assessment, continuous EKG monitoring, Pulse oximetry, Carbon Dioxide monitoring and blood pressure monitoring were done throughout the procedure. Procedure: The patient was placed in the left lateral decubitis position and pre-procedure medications were administered and a bite block was placed. The endoscope was inserted into the mouth and advanced under direct vision to the third part of duodenum. A careful inspection was made as the upper endoscope was withdrawn including a retroflexed examination of the proximal stomach; Findings and interventions are described below. Findings: Larynx: Normal Esophagus: GE junction at 40 cms. A chronic appearing 1.5 cms ulcer at GE junction covered with white exudate. Stomach: Minimal gastric erythema. Biopsies were obtained from the gastric antrum to check for H Pylori. Grade 2 flap valve on retroflexed examination of the cardia. Duodenum: Normal bulb and descending duodenum. Biopsies were obtained from 3rd part of duodenum to rule out celiac sprue Intervention: Biopsies as noted above Impression and Post Procedure Diagnosis: Endoscopy Findings: ESOPHAGUS: GE junction at 40 cms. A chronic appearing 1.5 cms ulcer at GE junction covered with white exudate. STOMACH: Minimal antral gastritis - biopsied to check for H pylori DUODENUM: Normal - bxed to check for celiac sprue No clear source found for DO, possibly due to esophageal ulcer versus small bowel source Plan: Await pathology results Repeat CBC tonight, if stable, pt can be discharged home on Omeprazole 20 mg twice daily and oral iron. I will schedule him for a Capsule Study as an outpatient (pt states he was advised to have a Capsule Study in the past and refused. He is willing to have it done) Patient to schedule a FU appointment in the GI Clinic with Rowan Moreno M.D. after Capsule Study Above findings were reviewed with the patient and GERD handouts were given to the patient Surgeon: Rowan Moreno MD Anesthesia: MAC (Dr Felton) Was an Assistant Curator used for this Procedure?: Yes Assistant Curator: Shaista Santacruz Estimated blood loss (mL): 0 Pathology: other (A. small bowel bxs, R/O celiac B. gastric antrum bxs, R/O H. pylori) Condition: stable Disposition: PACU
--- NOTE | 2021-08-03 14:31 | P.OP_ITS ---
Operative Note Operative Note Date of Service: 08/03/21 Narrative: Pre-op diagnosis: Iron def anemia, heme positive stools Post-op diagnosis:?other (GERD with esophageal ulcer at GE junction) Procedure: FLEXIBLE TRANSORAL UPPER GASTROINTESTINAL ENDOSCOPY WITH BIOPSIES Consent:?Indications for the procedure and potential complications of bleeding, perforation, reaction to medications and missed diagnosis were discussed with the patient and informed consent was obtained. Instrument:?Olympus GIF H 190 mid size upper endoscope Monitoring: Vital signs and clinical assessment, continuous EKG monitoring, Pulse oximetry, Carbon Dioxide monitoring and blood pressure monitoring were done throughout the procedure. Procedure:?The patient was placed in the left lateral decubitis position and pre-procedure medications were administered and a bite block was placed. The endoscope was inserted into the mouth and advanced under direct vision to the third part of duodenum. A careful inspection was made as the upper endoscope was withdrawn including a retroflexed examination of the proximal stomach; Findings and interventions are described below. Findings: Larynx:? Normal Esophagus: GE junction at 40 cms. A chronic appearing 1.5 cms ulcer at GE junction covered with white exudate. Stomach: Minimal gastric erythema. Biopsies were obtained from the gastric antrum to check for H Pylori. Grade 2 flap? valve on retroflexed examination of the cardia. Duodenum: Normal bulb and descending duodenum.? Biopsies were obtained from 3rd part of duodenum to rule out celiac sprue Intervention: Biopsies as noted above Impression and Post Procedure Diagnosis: Endoscopy Findings: ESOPHAGUS: GE junction at 40 cms. A chronic appearing 1.5 cms ulcer at GE junction covered with white exudate. STOMACH: Minimal antral gastritis - biopsied to check for H pylori DUODENUM: Normal - bxed to check for celiac sprue No clear source found for DO, possibly due to esophageal ulcer versus small bowel source Plan: Await pathology results Repeat CBC tonight, if stable, pt can be discharged home on Omeprazole 20 mg twice daily. I will schedule him for a Capsule Study as an outpatient. Patient to schedule a FU appointment in the GI Clinic with Rowan Moreno M.D. after Capsule Study Repeat EGD in 3-4 weeks to confirm esophageal ulcer has healed and no underlying Roberts's. Above findings were reviewed with the patient and GERD handouts were given to the patient Surgeon: Rowan Moreno MD Anesthesia:?MAC (Dr Felton) Was an Slat Basket Maker Helper Machine used for this Procedure?:?Yes Slat Basket Maker Helper Machine:?Shaista Santacruz Estimated blood loss (mL):?0 Pathology:?other (A. small bowel bxs, R/O celiac? B. gastric antrum bxs, R/O H. pylori) Condition:?stable Disposition:?PACU
--- NOTE | 2021-08-03 15:46 | P.DS_ITS ---
DS: Providers Provider Date of Service: 08/04/21 Date of admission: 08/02/21 23:45 Primary care physician: Teri Jhonson MD Consults: 08/02/21 23:41 Consult to Gastroenterology Routine Consulting Provider: Rowan Moreno Reason for consultation: guaiac positive stool/anemia DS: Diagnosis Discharge Diagnosis (1) Acute blood loss anemia: Status: Acute (2) Guaiac positive stools: Status: Acute DS: Summary Hospital Course Hospital Course: Chief Complaint: HAMILTON ?45-year-old male with a past medical history of hypertension, peptic ulcer disease presented to the hospital with a chief complaint of shortness of breath.? Patient reported that over the past few weeks he has been having shortness of breath especially on exertion; mentioned that about 2 weeks ago he was blowing snow and felt very a tired, exhausted, short of breath; he went back into the house and rested with improvement in tiredness/shortness of breath.? Over the past couple days he noted increased shortness of breath especially on exertion.? Denies any cough or sputum production.? Denies any chest pain palpitations lightheadedness or dizziness.? Denies any blood in the stool.? Denies any nausea vomiting or diarrhea.? Review of all other systems is negative except mentioned above ER course: Per ER? team patient's EKG was nonischemic, troponin negative; on labs noted to have hemoglobin of 8.1; stool guaiac was positive; ER team has ordered 1 unit of blood. hospital course: patient was admitted for acute blood loss anemia in setting of positive ocult blood, he was transfused 2 units of RBC with good effect, he was treated with IV PPI, had unremarkable colonoscopy [address] Moreno performed EGD on 08/03 with the following finding and recommendations: ESOPHAGUS: GE junction at 40 cms. A chronic appearing 1.5 cms ulcer at GE junction covered with white exudate. STOMACH: Minimal antral gastritis - biopsied to check for H pylori DUODENUM: Normal - bxed to check for celiac sprue No clear source found for DO, possibly due to esophageal ulcer versus small bowel source Plan: Await pathology results Repeat CBC tonight, if stable, pt can be discharged home on Omeprazole 20 mg twice daily. I will schedule him for a Capsule Study as an outpatient. Patient to schedule a FU appointment in the GI Clinic with Rowan Moreno M.D. after Capsule Study He will be discharged with Iron tab and PO omeprazole 20 bid, was given a dose of IV iron in the hospital Time Spent with Patient Time attestation: Total time spent providing and/or coordinating discharge services: Discharge coordination time: Greater than 30 minutes Quality: Stroke Does the patient have a stroke diagnosis?: No Physical Exam Vital Signs: Vital Signs: Selected Entries 08/04/21 08:00 Temperature 97.8 F Pulse Rate 65 Respiratory Rate 18 Blood Pressure 152/86 H Const: Other: General: AO X 3, no acute distress Resp: CTA bilateral CVS: S1,S2,RRR GI: +BS, NT, no distention Skin: No rash Neuro: motor grossly intact Psych: appropriate affect DS: Data Data Completed and Pending Pending studies at discharge: Pending at discharge 08/03/21 14:57 Surgical [PTH] Routine Labs on day of discharge: Laboratory Results - last 24 hr 08/02/21 08/02/21 08/02/21 15:26 15:26 15:26 WBC 8.5 RBC 3.95 L Hgb 8.1 L Hct 29.7 L MCV 75.2 L MCH 20.5 L MCHC 27.3 L RDW 15.0 Plt Count 525 H MPV 8.6 L Immature Gran % (Auto) 0.6 H Neut % (Auto) 58.4 Lymph % (Auto) 21.2 Imperial % (Auto) 14.7 H Eos % (Auto) 4.3 H Baso % (Auto) 0.8 Lymph # (Auto) 1.8 Imperial # (Auto) 1.2 Eos # (Auto) 0.4 Baso # (Auto) 0.1 Abs Immat Gran (auto) 0.05 H Absolute Neuts (auto) 5.0 Absolute Nucleated RBC 0.000 Nucleated RBC % (auto) 0.0 Sodium 137 Potassium 4.8 Chloride 104 Carbon Dioxide 25 Anion Gap 13 BUN 10 Creatinine 0.92 Estim Creat Clear Calc 130.8 Estimated GFR > 60 Random Glucose 105 Calcium 9.5 Iron 16 L TIBC 524 H % Saturation 3 L Unsat Iron Binding 508 Ferritin 3 L Troponin I High Sens < 3.5 Vitamin B12 Folate Urine Color Urine Appearance Urine pH Ur Specific [place] Urine Protein Urine Glucose (UA) Urine Ketones Urine Blood Urine Nitrite Ur Leukocyte Esterase Urine RBC Urine WBC Ur Squamous Epith Cells Urine Bacteria Stool Occult Blood Urine Opiates Screen Urine Fentanyl Screen Ur Barbiturates Screen Ur Phencyclidine Scrn Ur Amphetamines Screen U Benzodiazepines Scrn Urine Cocaine Screen U Marijuana (THC) Screen COVID-19 (SARAY) COVID-19 Clin Com Blood Type Antibody Screen Crossmatch 08/02/21 08/02/21 08/02/21 19:23 19:23 23:32 WBC RBC Hgb Hct MCV MCH MCHC RDW Plt Count MPV Immature Gran % (Auto) Neut % (Auto) Lymph % (Auto) [place] % (Auto) Eos % (Auto) Baso % (Auto) Lymph # (Auto) [place] # (Auto) Eos # (Auto) Baso # (Auto) Abs Immat Gran (auto) Absolute Neuts (auto) Absolute Nucleated RBC Nucleated RBC % (auto) Sodium Potassium Chloride Carbon Dioxide Anion Gap BUN Creatinine Estim Creat Clear Calc Estimated GFR Random Glucose Calcium Iron TIBC % Saturation Unsat Iron Binding Ferritin Troponin I High Sens Vitamin B12 Folate Urine Color YELLOW Urine Appearance CLEAR Urine pH 6.0 Ur Specific [place] <= 1.005 Urine Protein NEG Urine Glucose (UA) NEG Urine Ketones NEG Urine Blood NEG Urine Nitrite NEG Ur Leukocyte Esterase NEG Urine RBC 0 Urine WBC 0 Ur Squamous Epith Cells TRACE Urine Bacteria NONE Stool Occult Blood POSITIVE Urine Opiates Screen Not Detected Urine Fentanyl Screen Not Detected Ur Barbiturates Screen Not Detected Ur Phencyclidine Scrn Not Detected Ur Amphetamines Screen Not Detected U Benzodiazepines Scrn Not Detected Urine Cocaine Screen Not Detected U Marijuana (THC) Screen Not Detected COVID-19 (SARAY) COVID-19 [facility] Com Blood Type Antibody Screen Crossmatch 08/03/21 08/03/21 08/03/21 00:52 06:49 06:49 WBC 8.6 RBC 4.30 L Hgb 9.3 L Hct 33.2 L MCV 77.2 L MCH 21.6 L MCHC 28.0 L RDW 15.9 Plt Count 534 H MPV 9.1 L Immature Gran % (Auto) 0.5 H Neut % (Auto) 58.2 Lymph % (Auto) 20.4 [place] % (Auto) 14.8 H Eos % (Auto) 4.9 H Baso % (Auto) 1.2 Lymph # (Auto) 1.8 [place] # (Auto) 1.3 H Eos # (Auto) 0.4 Baso # (Auto) 0.1 Abs Immat Gran (auto) 0.04 H Absolute Neuts (auto) 5.0 Absolute Nucleated RBC 0.000 Nucleated RBC % (auto) 0.0 Sodium 139 Potassium 4.8 Chloride 107 Carbon Dioxide 25 Anion Gap 12 BUN 11 Creatinine 0.98 Estim Creat Clear Calc 122.8 Estimated GFR > 60 Random Glucose 103 Calcium 9.3 Iron TIBC % Saturation Unsat Iron Binding Ferritin Troponin I High Sens Vitamin B12 Folate Urine Color Urine Appearance Urine pH Ur Specific [place] Urine Protein Urine Glucose (UA) Urine Ketones Urine Blood Urine Nitrite Ur Leukocyte Esterase Urine RBC Urine WBC Ur Squamous Epith Cells Urine Bacteria Stool Occult Blood Urine Opiates Screen Urine Fentanyl Screen Ur Barbiturates Screen Ur Phencyclidine Scrn Ur Amphetamines Screen U Benzodiazepines Scrn Urine Cocaine Screen U Marijuana (THC) Screen COVID-19 (SARAY) COVID-19 Clin Com Blood Type O Positive Antibody Screen NEGATIVE Crossmatch See Detail 08/03/21 08/03/21 08/03/21 06:49 06:49 08:38 WBC RBC Hgb Hct MCV MCH MCHC RDW Plt Count MPV Immature Gran % (Auto) Neut % (Auto) Lymph % (Auto) [place] % (Auto) Eos % (Auto) Baso % (Auto) Lymph # (Auto) [place] # (Auto) Eos # (Auto) Baso # (Auto) Abs Immat Gran (auto) Absolute Neuts (auto) Absolute Nucleated RBC Nucleated RBC % (auto) Sodium Potassium Chloride Carbon Dioxide Anion Gap BUN Creatinine Estim Creat Clear Calc Estimated GFR Random Glucose Calcium Iron TIBC % Saturation Unsat Iron Binding Ferritin Troponin I High Sens 4.3 Vitamin B12 219 Folate 13.9 Urine Color Urine Appearance Urine pH Ur Specific [place] Urine Protein Urine Glucose (UA) Urine Ketones Urine Blood Urine Nitrite Ur Leukocyte Esterase Urine RBC Urine WBC Ur Squamous Epith Cells Urine Bacteria Stool Occult Blood Urine Opiates Screen Urine Fentanyl Screen Ur Barbiturates Screen Ur Phencyclidine Scrn Ur Amphetamines Screen U Benzodiazepines Scrn Urine Cocaine Screen U Marijuana (THC) Screen COVID-19 (SARAY) Negative COVID-19 Clin Com See Note Blood Type Antibody Screen Crossmatch Discharge Plan Discharge Anticipated Discharge Date/Time: 08/04/21 09:27 Patient Disposition: Home, Self-Care Discharge Diagnosis: Acute blood loss anemia, GI bleeding Referrals: Estefany Trinh MD [Physician] - 1 week Teri Johnson MD [Primary Care Provider] - 2 days Discharge Medications: New omeprazole 20 mg capsule,delayed release(DR/EC) 20 mg PO BID Qty: 180 0RF ferrous sulfate 325 mg (65 mg iron) tablet 325 mg PO BID Qty: 60 1RF ascorbic acid (vitamin C) [Vitamin C] 1,000 mg tablet 1 g PO DAILY Qty: 30 0RF docusate sodium [Colace] 100 mg capsule 100 mg PO BID PRN (Reason: constipation) Qty: 30 0RF Continued lisinopril 10 mg tablet 1 tab PO DAILY 0RF Discharge Orders: Discharge Order (Routine); Ordered 08/04/21 Ordered By: Brice Ng Diet: advance to usual diet Activity on Discharge: As tolerated Stand Alone Forms: Patient Portal Discharge page, Work/School Release Care Plan Goals: Full work up for anemia, and gi bleeding Health Concerns: esophageal ulcer, Gi bleeding, anemia Plan of Treatment: Take Prilosec and Iron pills as directed and follow up with Dr. Moreno. Avoid Motrin, Advil Assessment: As above Patient Instructions: Syncope (DC), Near Syncope (ED)
[2021-08-03 19:15] LABS: Hematocrit 34.6 % (42.0-52.0); Hemoglobin 9.8 g/dl (14.0-18.0); Mean Corpuscular HGB Conc 28.3 g/dl (31.0-36.0); Mean Corpuscular Hemoglobin 21.6 pg (27.0-33.0); Mean Corpuscular Volume 76.4 fL (80.0-98.0); Mean Platelet Volume 8.5 fL (9.4-12.4); Platelet Count 526 X10*3/uL (160-400); Red Blood Count 4.53 X10*6/uL (4.60-5.80); Red Cell Distribution Width 15.6 % (11.0-16.0); White Blood Count 13.8 X10*3/uL (4.8-10.8)
[2021-08-04] MEDS: 0.9 % Sodium Chloride Flush 3 ML SYRINGE IVFLUSH ×2
[2021-08-04 03:35] VITALS: BP 136/65; PULSE 62; RESP 18; TEMP 37; O2SAT 93
[2021-08-04 08:00] VITALS: BP 152/86; PULSE 65; RESP 18; TEMP 36.6; O2SAT 100
[2021-08-04] MEDS: lisinopriL 10 MG TABLET PO (09:34)
--- NOTE | 2021-08-04 10:03 | MHC.CM.PN ---
pt dcd home no services ordered by
--- NOTE | 2021-08-04 12:19 | HO.POSTANES ---
Post Anesthesia Evaluation Post Anesthesia Evaluation Vital Signs: Vital Signs Temp Pulse Resp BP Pulse Ox 08/04/21 08:00 97.8 F 65 18 152/86 H 100 08/04/21 03:35 98.6 F 62 18 136/65 93 Mental Status: Awake Pain Control: Satisfactory Nausea/Vomiting: None Hydration: Adequate Anesthesia-Related Issues: No Anes. Related Issues
== END 2021-08-04 15:15 | disposition home or self-care (01) | DRG 381 ==
LOC: HO.ED 23:55 → HO.EDOVER 08-03 00:32 → HO.IMC 08-03 11:54
PROVIDERS: Internal Medicine Gastroenterology; Physician Assistant; Admitting Provider Hospitalist; Emergency Provider Emergency Medicine; PCP Internal Medicine; Visit Provider Internal Medicine
PROC: 0DJ08ZZ Inspection of Upper Intestinal Tract, Via Natural or Artificial Opening Endoscopic (ICD-10-PCS; CPT 43235; principal; 2021-08-03 14:40)
DX: K22.11 Ulcer of esophagus with bleeding (principal); D62 Acute posthemorrhagic anemia; D75.838 Other thrombocytosis; I10 Essential (primary) hypertension; E61.1 Iron deficiency; Z20.822 Contact with and (suspected) exposure to COVID-19; Z88.0 Allergy status to penicillin; Z79.899 Other long term (current) drug therapy
CPT/HCPCS: 36415; 36430; 70450; 71046; 80048; 80307; 81001; 82272; 82607; 82728; 82746; 83540; 84484; 85025; 85027; 86850; 86900; 86901; 86923; 87635; 88305; 88342; 93005; 99285; J2916; P9016

== ENCOUNTER → 2021-08-15 08:36 | Outpatient (BNVA) | payer OTHER, SELFPAY | PROVIDERS: PCP Internal Medicine; Referring Provider Internal Medicine; Visit Provider Internal Medicine Gastroenterology | DX: Z12.11 Encounter for screening for malignant neoplasm of colon (principal) | CPT/HCPCS: 91110 ==

== ENCOUNTER → 2025-03-25 08:19 | Outpatient (BNVA) | payer OTHER, SELFPAY | PROVIDERS: PCP Internal Medicine; Visit Provider Internal Medicine | DX: S83.92XA Sprain of unspecified site of left knee, initial encounter (principal); W18.31XA Fall on same level due to stepping on an object, initial encounter | CPT/HCPCS: 73562; 99203 ==

== ENCOUNTER → 2025-03-28 08:28 | Outpatient (BNVA) | payer OTHER, SELFPAY | PROVIDERS: PCP Internal Medicine; Visit Provider Internal Medicine | DX: S83.92XA Sprain of unspecified site of left knee, initial encounter (principal); W18.31XA Fall on same level due to stepping on an object, initial encounter | CPT/HCPCS: 99213 ==

== ENCOUNTER → 2025-04-04 08:11 | Outpatient (BNVA) | payer OTHER, SELFPAY | PROVIDERS: PCP Internal Medicine; Visit Provider Internal Medicine | DX: M23.92 Unspecified internal derangement of left knee (principal) | CPT/HCPCS: 99213 ==

== ENCOUNTER → 2025-04-18 08:20 | Outpatient (BNVA) | payer OTHER, SELFPAY | PROVIDERS: PCP Internal Medicine; Visit Provider Internal Medicine | DX: M23.92 Unspecified internal derangement of left knee (principal) | CPT/HCPCS: 99213 ==

== ENCOUNTER 2025-04-20 10:24 | Outpatient (REF) | payer OTHER, SELFPAY ==
--- OUTSIDE RECORDS SUMMARY | 2023-10-16 23:00 | XMS_ITS | Encounter Summary ---
Author Organization [facility] Address [address] [place] [address] Care Team Providers Care Unit Aide Tech Name Role Phone Darlin Moreno MD Primary Care Provider [phone] Encounter Details Date Type Department Care Team (Late st Contact Info) Description 10/17/2023 Hospital Encounter TH HISTORIC ENCOUNTERS EASTERN CONVERSION ONLY Desiree Cuellar PA [address] [place] [address] Social History Tobacco Use Types Packs/Day Years Used Date Smoking Tobacco: Never Smokeless Tobacco: Never Alcohol Use Standard Drinks/Week Comments Yes 0 (1 standard drink = 0.6 oz pur e alcohol) Housing Instability Answer Date Recorde d Are you worried that in the next 2 months you may not have stable housing? No 04/02/2024 Food Access & Nutrition Answer Date Rec orded Do you have access to a vari ety of food including fruits and vegetables? No 04/02/2024 Health Literacy Answer Date Recorded How often do you need to hav e someone help you when you read instructions, pamphlets, or other written material from your doctor or pharmacy? Never 04/02/2024 Caregiver: How often do you need to have someone help you when you read instructions, pamphlets, or other written material from your doctor or pharmacy? Not on file 04/02/2024 Financial Risk Answer Date Recorded How hard is it for you to pa y for the very basics like food, housing, medical care, and air conditioning / heating? Not very hard 04/02/2024 Transportation Answer Date Recorded Has the lack of transportati on kept you from meetings, work, or from getting things needed for daily living? No Has the lack of transportati on kept you from medical appointments or from getting medications? No 04/02/2024 Social Isolation Answer Date Recorded How often do you feel lonely or isolated from th ose around you? Never 04/02/2024 Food Risk Answer Date Recorded Within the past 12 months we worried whether our food would run out before we got money to buy more. Never true 04/02/2024 Within the past 12 months th e food we bought just didn't last and we didn't have money to get more. Never true 04/02/2024 Dependent Care Answer Date Recorded Do you need help finding or paying for care for your loved ones. For example, child support agent or elderly care for an older adult? No 04/02/2024 Education Answer Date Recorded Do you think completing more education or training, like finishing a GED, going to college, or learning a trade, would be helpful for you? No 04/02/2024 Employment and Income Answer Date Recor ded During the last four weeks, have you been actively looking for work? No 04/02/2024 Living Situation Answer Date Recorded What is your living situation? Unrecognized valu e 04/02/2024 Sex and Gender Information Value Date Recorded Sex Assigned at Not on file Legal Sex Male 6:58 PM EST Gender Identity Not on file Sexual Orientation Not on file documented as of this encounter Last Filed Vital Signs Vital Sign Reading Time Taken Comments Blood Pressure - - Pulse - - Temperature - - Respiratory Rate - - Oxygen Saturation - - Inhaled Oxygen Concentration - - Weight 104 kg (229 lb) 12/05/2023 8:45 AM EDT Height - - Body Mass Index 31.94 10/10/2023 9:45 AM EDT documented in this encounter Plan of Treatment Upcoming Encounters Date Type Department Care Team (Late st Contact Info) Description 04/26/2025 3:30 PM EST Office Visit Adult Medicine [address] [phone] Sandra Titus PA [address] [place] [phone] 03/23/2026 3:00 PM EST Office Visit [facility] Hematology Oncology [address] [place] [phone] Desiree Cuellar PA [address] [place] [address] documented as of this encounter Visit Diagnoses Not on filedocumented in this encounter Care Teams Unit Aide Tech Relationship Specialty Start Date End Date Darlin Moreno MD PCP - General 04/24/22 03/24/24 documented as of this encounter
--- NOTE | ~2025-04-20 | XR_ITS ---
EXAMINATION: XR KNEE, LEFT CLINICAL INFORMATION: M25.562 - Pain in left knee COMPARISON: 03/25/2025 TECHNIQUE: Three views of the left knee. FINDINGS: Joint spaces are preserved. There is no joint effusion. There is an enthesophyte across the anterior patella extending into distal quadriceps tendon. There is a minute osteophyte involving the medial trochlear margin and the medial intercondylar spine is minimally peaked. No other abnormalities are evident. XR/XR knee LT 3V IMPRESSION: Stable left knee with subtle degenerative changes. Electronically signed by: Yan Arteaga MD 04/20/2025 02:37 PM EST
--- OUTSIDE RECORDS SUMMARY | 2025-04-21 12:44 | XMS_ITS | Encounter Summary ---
Author Organization [facility] Address [address] [place] [address] Care Team Providers Care Aircraft Mechanic Armament Name Role Phone Darlin Moreno MD Primary Care Provider [phone] Encounter Details Date Type Department Care Team ([facility] st Contact Info) Description 03/23/2025 Results Follow-Up Adult Medicine [address] [phone] Sandra Titus PA [address] [place] [address] Social History Tobacco Use Types Packs/Day Years [...] for your loved ones. For example, child care lead teacher or elderly care for an older adult? [...] 3:30 PM EST Office Visit Adult Medicine [address] [phone] Sandra Titus PA [address] [place], [place] 03/23/2026 3:00 PM EST Office Visit [facility] Hematology Oncology [address] [place] [phone] Desiree Cuellar PA [address] [place] [address] documented as of this encounter Visit Diagnoses Not on filedocumented in this encounter Additional Health Concerns Assessment Noted Time PHQ-9 Depression Total Score: 0 02/11/20 2:45 PM EDT documented as of this encounter Care Teams Aircraft Mechanic Armament Relationship Specialty Start Date End Date Darlin Moreno MD [address] [place] [address] PCP - General Internal Medicine 03/25/24 documented as of this encounter
--- OUTSIDE RECORDS SUMMARY | 2025-04-21 12:45 | XMS_ITS | Clinical Summary ---
Author Organization [facility] [address] [place] [address] [place] [phone] Phone Care Team Providers Care Computer Recycling Worker Name Role Phone Darlin Moreno MD Primary Care Provider [phone] Allergies Active Allergy Reactions Criticality Noted Date [...] 03/29/2025 3:30 PM EST Office Visit Adult [address] [phone] Sandra Titus PA Essential hypertension (Primary Dx) 03/23/2025 Results Follow-Up Adult [address] [phone] Sandra Titus PA 03/17/2025 3:15 PM EDT Office Visit [facility] Hematology Oncology [address] [place] [phone] Desiree Cuellar PA Iron deficiency anemia due to chronic blood loss (Primary Dx); History of GI bleed; History of gastric ulcer; Low serum vitamin B12 03/16/2025 2:58 PM EDT - 03/16/2025 11:59 PM EDT Hospital Encounter Radiology Department - [address] [phone] Phantosmia Discharge Disposition: Home or Self Care 02/16/2025 3:30 PM EDT Office Visit Adult Medicine [place] - [address] [phone] Sandra Titus PA Essential hypertension (Primary Dx); [...] for your loved ones. For example, child protective investigator or elderly care for an older adult? [...] 3:30 PM EST Office Visit Adult Medicine [facility] [address] [place] [phone] Sandra Titus PA [address] [place] [address] 03/23/2026 3:00 PM EST Office Visit [facility] Hematology Oncology [address] [place] [phone] Desiree Cuellar PA [address] [place] [address] Health Maintenance Due Date Last Done Comments [...] Signed Date: 03/17/2025 17:10 ET Workstation ID: [id number] Transcribed By: Self Edit Transcribed Date: 03/17/2025 [...] Signed Date: 03/17/2025 17:10 ET Workstation ID: [id number] Transcribed By: Self Edit Transcribed Date: 03/17/2025 15:25 ET Sandra KHAN IMG MRI PROCEDURES Final Resul t * Vitamin B12 and folate (03/10/2025 2:14 PM EDT) Vitamin B-12 418 250 - 900 pcg/mL LAB CHEMISTRY METHOD 03/10/2025 5:56 PM EDT [facility] Folate 17.0 2.8 - 17.0 ng/ml LAB CHEMISTRY METHOD 03/10/2025 5:56 PM EDT [facility] Blood Venous blood specimen / Unknown Venipuncture / Unknown 03/10/2025 2:14 PM EDT 03/10/2025 2:14 PM EDT Desiree KHAN LAB BLOOD ORDERABLES Final Re sult [facility] [address] [place] [address], * (ABNORMAL) CBC auto differential (03/10/2025 2:14 PM EDT) WBC 9.3 4.8 - 10.8 K/mcL LAB HEMETOLOGY METHOD 03/10/2025 4:16 PM EDT [facility] RBC 5.00 4.50 - 5.50 M/mcL LAB HEMETOLOGY METHOD 03/10/2025 4:16 PM EDT [facility] Hemoglobin 15.0 13.5 - 17.5 g/dL LAB HEMETOLOGY METHOD 03/10/2025 4:16 PM EDT [facility] Hematocrit 45.0 42.0 - 54.0 % LAB HEMETOLOGY METHOD 03/10/2025 4:16 PM EDT [facility] MCV 89.3 79.0 - 98.0 FL LAB HEMETOLOGY METHOD 03/10/2025 4:16 PM EDT [facility] MCH 29.8 27.0 - 32.0 pcg LAB HEMETOLOGY METHOD 03/10/2025 4:16 PM EDT [facility] MCHC 33.3 32.0 - 37.0 g/dL LAB HEMETOLOGY METHOD 03/10/2025 4:16 PM EDT [facility] RDW 13.2 11.0 - 15.0 % LAB HEMETOLOGY METHOD 03/10/2025 4:16 PM EDT [facility] Platelets 255 130 - 400 K/mcL LAB HEMETOLOGY METHOD 03/10/2025 4:16 PM EDT [facility] MPV 9.1 7.0 - 11.0 FL LAB HEMETOLOGY METHOD 03/10/2025 4:16 PM EDT [facility] NRBC 0.0 <1.0 % LAB [facility] NR[facility] Absolute 0.00 <0.10 K/mcL LAB HEMETOLOGY METHOD 03/10/2025 4:16 PM [facility] Neutrophils Relative 69.1 % LAB HEMETOLOGY METHOD 03/10/2025 4:16 PM [facility] Lymphocytes Relative 15.8 % LAB HEMETOLOGY METHOD 03/10/2025 4:16 PM [facility] Monocytes Relative 11.1 % LAB HEMETOLOGY METHOD 03/10/2025 4:16 PM [facility] Eosinophils Relative 2.7 % LAB HEMETOLOGY METHOD 03/10/2025 4:16 PM [facility] Basophils Relative 0.9 % LAB HEMETOLOGY METHOD 03/10/2025 4:16 PM [facility] Immature Granulocytes Relative 0.4 % LAB HEMETOLOGY METHOD 03/10/2025 4:16 PM [facility] Neutrophils Absolute 6.45 1.50 - 7.00 K/mcL LAB HEMETOLOGY METHOD 03/10/2025 4:16 PM [facility] Lymphocytes Absolute 1.47 1.00 - 5.00 K/mcL LAB HEMETOLOGY METHOD 03/10/2025 4:16 PM [facility] Monocytes Absolute 1.04(H) 0.20 - 1.00 K/mcL LAB HEMETOLOGY METHOD 03/10/2025 4:16 PM [facility] Eosinophils Absolute 0.25 0.00 - 0.50 K/mcL LAB HEMETOLOGY METHOD 03/10/2025 4:16 PM [facility] Basophils Absolute 0.08 0.00 - 0.20 K/mcL LAB HEMETOLOGY METHOD 03/10/2025 4:16 PM EDT [facility] Immature Granulocytes Absolute 0.04(H) 0.00 - 0.03 K/mcL LAB HEMETOLOGY METHOD 03/10/2025 4:16 PM EDT [facility] Blood Venous blood specimen / Unknown Venipuncture / Unknown 03/10/2025 2:14 PM EDT 03/10/2025 2:14 PM EDT Desiree KHAN LAB BLOOD ORDERABLES Final Re sult [facility] [address] [place] [address], [place] [phone] * Iron and TIBC (03/10/2025 2:14 PM EDT) Iron 110 50 - 160 mcg/dL LAB CHEMISTRY METHOD 03/10/2025 4:58 PM EDT [facility] TIBC 348 250 - 450 mcg/dL LAB CHEMISTRY METHOD 03/10/2025 4:58 PM EDT [facility] Iron Saturation 32 20 - 50 % LAB CHEMISTRY METHOD 03/10/2025 4:58 PM EDT [facility] Blood Venous blood specimen / Unknown Venipuncture / Unknown 03/10/2025 2:14 PM EDT 03/10/2025 2:14 PM EDT Desiree KHAN LAB BLOOD ORDERABLES Final Re sult [facility] [address] [place] [address], [place] [phone] * Ferritin (03/10/2025 2:14 PM EDT) Ferritin 64 26 - 388 ng/mL LAB CHEMISTRY METHOD 03/10/2025 5:56 PM EDT [facility] Blood Venous blood specimen / Unknown Venipuncture / Unknown 03/10/2025 2:14 PM EDT 03/10/2025 2:14 PM EDT us Desiree KHAN LAB BLOOD ORDERABLES Final Re sult Performing Organization Address City/[facility]/ZIP Co de Phone Number [facility] [address] [place] [address], [place] [phone] * (ABNORMAL) Lipid panel with reflex to direct LDL (04/06/2024 10:26 AM EST) Cholesterol 201(H) 0 - 200 mg/dL LAB CHEMISTRY METHOD 04/06/2024 3:26 PM EST [facility] Triglycerides 105 0 - 150 mg/dL LAB CHEMISTRY METHOD 04/06/2024 3:26 PM EST [facility] HDL 45 >=40 mg/dL LAB CHEMISTRY METHOD 04/06/2024 3:26 PM EST [facility] LDL Calculated 135(H) 0 - 100 mg/dL LAB CHEMISTRY METHOD 04/06/2024 3:26 PM EST [facility] VLDL Cholesterol Igor 21 mg/dL LAB CHEMISTRY METHOD 04/06/2024 3:26 PM EST [facility] Non HDL Chol. (LDL+VLDL) 156(H) <145 mg/dL LAB CHEMISTRY METHOD 04/06/2024 3:26 PM EST [facility] Chol/HDL Ratio 4.5(H) 0.0 - 4.4 LAB CHEMISTRY METHOD 04/06/2024 3:26 PM [facility] Blood Venous blood specimen / Unknown Venipuncture / Unknown 04/06/2024 10:26 AM EST 04/06/2024 10:26 AM EST us Darlin Moreno MD LAB BLOOD ORDERABLES Final Resul t [facility] [address] [place] [address], [place] [phone] * (ABNORMAL) Comprehensive metabolic panel (04/06/2024 10:26 AM EST) Sodium 135 133 - 145 mmol/L LAB CHEMISTRY METHOD 04/06/2024 3:26 PM [facility] Potassium 4.1 3.5 - 5.5 mmol/L LAB CHEMISTRY METHOD 04/06/2024 3:26 PM [facility] Chloride 101 96 - 110 mmol/L LAB CHEMISTRY METHOD 04/06/2024 3:26 PM [facility] CO2 29 21 - 32 mmol/L LAB CHEMISTRY METHOD 04/06/2024 3:26 PM [facility] Anion Gap 5 3 - 11 LAB CHEMISTRY METHOD 04/06/2024 3:26 PM [facility] Glucose 95 70 - 100 mg/dL LAB CHEMISTRY METHOD 04/06/2024 3:26 PM [facility] BUN 11 5 - 25 mg/dL LAB CHEMISTRY METHOD 04/06/2024 3:26 PM [facility] Creatinine 0.96 0.70 - 1.30 mg/dL LAB CHEMISTRY METHOD 04/06/2024 3:26 PM [facility] eGFR 98 >=60 mL/min/1. 73m2 LAB CHEMISTRY METHOD 04/06/2024 3:26 PM [facility] Comment:Calculation based on the Chronic Kidney Disease Epidemiology Collaboration (CKD-EPI) equation refit without adjustment for race. BUN/Creatinine Ratio 11.5 LAB CHEMISTRY METHOD 04/06/2024 3:26 PM [facility] Calcium 10.0 8.5 - 10.5 mg/dL LAB CHEMISTRY METHOD 04/06/2024 3:26 PM [facility] AST (SGOT) 27 10 - 42 unit/L LAB CHEMISTRY METHOD 04/06/2024 3:26 PM [facility] ALT (SGPT) 27 10 - 60 unit/L LAB CHEMISTRY METHOD 04/06/2024 3:26 PM EST [facility] Alkaline Phosphatase 61 42 - 121 unit/L LAB CHEMISTRY METHOD 04/06/2024 3:26 PM [facility] Total Protein 8.3(H) 6.0 - 8.0 g/dL LAB CHEMISTRY METHOD 04/06/2024 3:26 PM EST [facility] Albumin 4.2 3.2 - 5.0 g/dL LAB CHEMISTRY METHOD 04/06/2024 3:26 PM [facility] Total Bilirubin 0.7 0.0 - 1.4 mg/dL LAB CHEMISTRY METHOD 04/06/2024 3:26 PM [facility] Blood Venous blood specimen / Unknown Venipuncture / Unknown 04/06/2024 10:26 AM EST 04/06/2024 10:26 AM EST us Darlin Moreno MD LAB BLOOD ORDERABLES Final Resul t [facility] [address] [place] [address], from Last 3 Months or Most Recently Relevant to Health Maintenance Insurance [facility] Care Teams Computer Recycling Worker Relationship Specialty Start Date End Date Darlin Moreno MD [address] [place] [address] PCP - General Internal Medicine 03/25/24
--- OUTSIDE RECORDS SUMMARY | 2025-04-21 12:45 | XMS_ITS | Clinical Summary ---
Author Organization [facility] Prior to 10/16/24 Address [address] [place] [address] Care Team Providers Care Manager Drug Safety Name Role Phone Darlin Moreno MD Primary Care Provider [phone] Allergies Active Allergy Reactions Criticality Noted Date [...] age to complete this topic Care Teams Manager Drug Safety Relationship Specialty Start Date End Date Darlin Moreno MD [address] [place] [address] PCP - General Internal Medicine 09/16/23
== END 2025-04-20 10:25 | disposition home or self-care (01) ==
LOC: HO.HOSX 10:24
PROVIDERS: Visit Provider Orthopaedic Surgery
DX: S83.242D Other tear of medial meniscus, current injury, left knee, subsequent encounter (principal); W18.30XD Fall on same level, unspecified, subsequent encounter
CPT/HCPCS: 73562; 99202

== ENCOUNTER 2025-04-20 14:06 | Outpatient (AMB) | payer OTHER, SELFPAY ==
--- OUTSIDE RECORDS SUMMARY | 2023-10-16 23:00 | XMS_ITS | Encounter Summary ---
Author Organization [facility] Address [address] [place] [address] Care Team Providers Care Solar Manager Name Role Phone Darlin Moreno MD Primary Care Provider [phone] Encounter Details Date Type Department Care Team (Late st Contact Info) Description 10/17/2023 Hospital Encounter TH HISTORIC ENCOUNTERS EASTERN CONVERSION ONLY Desiree Cuellar PA [address] [place] [address] Social History Tobacco Use Types Packs/Day Years [...] care for your loved ones. For example, teacher early childhood development or elderly care for an older adult? [...] 3:30 PM EST Office Visit Adult Medicine [address] [phone] Sandra Titus PA [address] [place] [phone] 03/23/2026 3:00 PM EST Office Visit [facility] Hematology Oncology [address] [place] [phone] Desiree Cuellar PA [address] [place] [address] documented as of this encounter Visit Diagnoses Not on filedocumented in this encounter Care Teams Solar Manager Relationship Specialty Start Date End Date Darlin Moreno MD PCP - General 04/24/22 03/24/24 documented as of this encounter
--- NOTE | 2025-04-20 14:20 | MHC.OFFVIS ---
Vital Signs 04/20/25 14:35 Height 5 ft 10 in Weight 246 lb BMI 35.3 Intake Visit Reasons: DIGITAL MEDIA SPECIALIST-left knee injury-DOI- 03/25/25 Intake Note: Ankur is a 49 year old male who presents with complaints of progressively worsening left knee pain and giving way. The patient states that he injured his knee when he stepped off of a curb, twisted his knee and fell to the ground. Most of the pain is along the medial and lateral aspects of his knee. He has been limping because of his pain. He states that his left knee will give out several times per day. He has tried Tylenol which gives him minimal relief. He is not able to take anti-inflammatory medicines because of the history of a gastrointestinal bleed. He has tried physical therapy exercises which aggravated his pain. Allergies erythromycin base (ERYTHROMYCIN BASE) Allergy (Severe, Unverified 04/20/25 14:32) RASH Penicillins (PENICILLINS) Allergy (Severe, Unverified 04/20/25 14:32) RASH amoxicillin Allergy (Unknown, Verified 04/20/25 14:32) rash penicillin V Allergy (Unknown, Verified 04/20/25 14:32) rash Erythromycin Allergy (Unknown, Uncoded 04/20/25 14:32) rash Medication List - Last Reviewed 04/20/25 by EDUARDO Suazo amlodipine 10 mg PO DAILY lisinopril 1 tab PO DAILY losartan 75 mg PO DAILY PFSH Medical History (Updated 04/20/25 @ 14:42 by Davis Simpson MD) HTN (hypertension) Syncopal episodes Social History (Updated 04/20/25 @ 14:34 by EDUARDO Suazo) Household Members: Family Housing: Apartment Alcohol intake: current Alcohol intake frequency: holidays/special occasions only Patient Tobacco Use Status: Never used Tobacco Advance Directives Date on File: 08/03/21 service: No Current occupational status: employed Current occupation: EPW for [employer] Physical Exam Vital Signs: BMI result Body Mass Index 35.3 Extrem Other: Left knee examination shows a minimal effusion, mild crepitus with range of motion, tenderness along his medial and lateral joint lines, positive Robert's test, no instability Results Reviewed Results Reviewed: X-rays of the patient's left knee show minimal diffuse joint space narrowing, no acute bony abnormalities Assessment & Plan Assessment & Plan (1) Tear of medial meniscus of left knee: Code(s): S83.242A - Other tear of medial meniscus, current injury, left knee, initial encounter Category: Medical Plan Mr. Foster presents with left knee pain and mechanical symptoms possibly due to meniscus tearing. Thus, I will send the patient for an MRI of his left knee for further evaluation. I will see him back once the MRI is completed to discuss the findings and treatment options. Feel free to call me at any time should questions regarding his orthopedic management arise. Thank you very much for asking me to see this very friendly gentleman. I spent 20 minutes in reviewing the patient's records and imaging studies, seeing the patient and documenting in the medical record. Orders: Orders XR knee LT 3V 04/20/25 M25.562 - Pain in left knee MR knee LT wo con Today S83.242A - Other tear of medial meniscus, current injury, left knee, initial encounter Coding Level of Care Code New Pt Level 3 (05130) Complex visit Add On G2211 Diagnoses Tear of medial meniscus of left knee S83.242A
[2025-04-20 14:35] VITALS: BMI 35.3
--- OUTSIDE RECORDS SUMMARY | 2025-04-20 17:00 | XMS_ITS ---
Author Name [facility] Organization Unknown Care Team Organization Name Specialty Phone Email Start Date End Da te [facility] Darlin Moreno Primary Care 03/18/2023 024 [facility] JOI OLMEDO Primary Care 01/23/2023 4
--- OUTSIDE RECORDS SUMMARY | 2025-04-20 17:00 | XMS_ITS | Clinical Summary ---
Author Organization [facility] Prior to 10/16/24 Address [address] [place] [address] Care Team Providers Care Glass Glazier Name Role Phone Darlin Moreno MD Primary Care Provider [phone] Allergies Active Allergy Reactions Criticality Noted Date Comments Amoxicillin 12/05/2023 Penicillins 12/05/2023 Medications Medication Sig Dispensed Refills Start Date End Date Status amLODIPine (NORVASC) tablet 10 mg Take 1 tablet (10 mg total) by mouth daily. 0 Active losartan (COZAAR) tablet 25 mg Take 0.5 tablets (12.5 mg total) by mouth daily. 0 Active Cyanocobalamin 1000 MCG CAPS Take 1 capsule by mouth daily. 90 capsule 1 03/05/2024 Active folic acid (FOLVITE) tablet 1 mg TAKE 1 TABLET BY MOUTH EVERY DAY 90 tablet 0 03/15/2024 Active Social History Tobacco Use Types Packs/Day Years Used Date Smoking Tobacco: Never Smokeless Tobacco: Never Tobacco Cessation:Counseling Given: Not Answered Alcohol Use Standard Drinks/Week Comments Yes 0 (1 standard drink = 0.6 oz pur e alcohol) 2 times a week Sex and Gender Information Value Date Recorded Sex Assigned at Not on file Gender Identity Not on file Sexual Orientation Not on file Job Start Date Occupation Industry Not on file Not on file Not on file Last Filed Vital Signs Vital Sign Reading Time Taken Comments Blood Pressure 151/82 03/05/2024 10:12 AM EDT Pulse 51 03/05/2024 10:12 AM EDT Temperature 36.5 C (97.7 F) 03/05/2024 10:12 AM EDT Respiratory Rate - - Oxygen Saturation 98% 03/05/2024 10: 12 AM EDT Inhaled Oxygen Concentration - - Weight 105.3 kg (232 lb 3.2 oz) 024 10:12 AM EDT Height - - Body Mass Index - - Plan of Treatment Health Maintenance Due Date Last Done Comments Hepatitis B Vaccines (1 of 3 - 3-dose series) 1975 Hepatitis C Screening 1975 Depression Screening 1987 Preventative Health Evaluation 12/25/1993 Colon Cancer Screening (Colonoscopy) 12/25/2020 COVID-19 Vaccine (2 - season) 2025 05/24/2021 Influenza Vaccine (#1) 2025 , 03/20/2022, 02/24/2020, Additional history exists DTap / Tdap / Td (2 - Td or Tdap) 04/18/2031 04/18/2021 Pneumococcal Vaccine Aged Out No long er eligible based on patient's age to complete this topic RSV Ped < 20 months Aged Out No longe r eligible based on patient's age to complete this topic Care Teams Glass Glazier Relationship Specialty Start Date End Date Darlin Moreno MD [address] [place] [address] PCP - General Internal Medicine 09/16/23
--- OUTSIDE RECORDS SUMMARY | 2025-04-20 17:00 | XMS_ITS | Clinical Summary ---
Author Organization [facility] [address] [place] [address] [place] [phone] Phone Care Team Providers Care Line Director Name Role Phone Darlin Moreno MD Primary Care Provider [phone] Allergies Active Allergy Reactions Criticality Noted Date Comments Amoxicillin 12/05/2023 Erythromycin Rash Low 05/09/2020 Lisinopril Cough 10/10/2023 Penicillins Rash Low 07/30/2018 Medications amLODIPine (NORVASC) 10 mg tablet TAKE 1 TABLET BY MOUTH EVERY DAY 90 tablet 1 5 Active losartan (Cozaar) 50 mg tablet Take 1.5 tablets (75 mg total) by mouth 1 (one) time each day. 135 each 1 5 Active losartan (Cozaar) 50 mg tablet Take 1 tablet (50 mg total) by mouth 1 (one) time each day. 90 each 1 5 03/29/20 25 Discontinu ed(Reorder ) Active Problems Problem Noted Date Diagnosed Date Fatigue 02/23/2024 Syncope and collapse 02/23/2024 Overview (02/23/2024): Last Assessment & Plan: The patient has been experiencing episodes of presyncope for the past 5 years. He has approximately 1 episode of presyncope per year. The description of the episodes is suggestive of vasovagal episodes. Recent 30-day monitor did not show any arrhythmias. Recent echocardiogram did not show any structural heart disease. The patient denies any further episodes of presyncope. At this point, we will continue to monitor the patient's symptoms. If he has any recurrent episodes of near syncope or briana episodes of syncope, then we may need to consider the possibility of an implantable loop recorder. Chronic bilateral low back pain without sciatica 12/25/2022 Dyspnea 01/25/2021 Overview (02/23/2024): Last Assessment & Plan: The patient has been experiencing exertional dyspnea. He denies any chest pain. The patient does have multiple risk factors for CAD including: Hypertension and obesity. Therefore, we will proceed with an exercise stress test to evaluate for underlying cardiac ischemia that may explain his exertional symptoms. Erectile dysfunction 05/09/2020 Obesity 12/16/2019 Anemia 08/13/2018 Esophageal ulcer 08/13/2018 Nephrolithiasis 08/13/2018 Prediabetes 08/13/2018 Assessment & Plan (04/02/2024 12:25 PM EST): Orders: Hemoglobin A1c; Future Essential hypertension 07/30/2018 Overview (02/23/2024): Last Assessment & Plan: The patient has a history of arterial hypertension. The patient's blood pressure today was noted to be well controlled. We'll continue the current antihypertensive medication regimen. Assessment & Plan (04/02/2024 12:25 PM EST): Orders: Comprehensive metabolic panel; Future Encounters Date Type Department Care Team Description 03/29/2025 3:30 PM EST Office Visit Adult [address] [phone] Sandra Titus PA Essential hypertension (Primary Dx) 03/23/2025 Results Follow-Up Adult [address] [phone] Sandra Titus PA 03/17/2025 3:15 PM EDT Office Visit [facility] Hematology Oncology [address] [place] [phone] Desiree Cuellar PA Iron deficiency anemia due to chronic blood loss (Primary Dx); History of GI bleed; History of gastric ulcer; Low serum vitamin B12 03/16/2025 2:58 PM EDT - 03/16/2025 11:59 PM EDT Hospital Encounter Radiology Department - [address] [phone] Phantosmia Discharge Disposition: Home or Self Care 02/16/2025 3:30 PM EDT Office Visit Adult Medicine [place] - [address] [phone] Sandra Titus PA Essential hypertension (Primary Dx); Phantosmia from Last 3 Months Immunizations Immunization Administration Dates Next Due Influenza Quadravalent, MDCK , 0.5ml, preservative free (Flucelvax) 6mo and older 02/10/2023,03/20/2022,02/24/2020 Influenza trivalent, 0.5mL, preservative free (Fluarix; FluLaval; Fluzone) ages 6mo and older (Afluria) 3 years and older 01/28/2025,01/30/2024 Influenza trivalent, with pr eservative (Fluzone; Afluria) 6mo and older 02/05/2018 Influenza, Unspecified 02/02/2021 Tdap Tetanus diptheria acell ular pertussis (Boostrix; Adacel) 7yo and older 04/18/2021 Surgical History Surgery Date Site/Laterality Comments OTHER SURGICAL HISTORY 05/19/2022 - 05/18/2023 Paraesophgeal hernia repair APPENDECTOMY 05/11/1995 Medical History Medical History Date Comments Iron deficiency anemia Family History Medical History Relation Name Comments Diabetes Father Hypertension Father Relation Name Status Comments Father Social History Tobacco Use Types Packs/Day Years [...] do you feel lonely or isolated from ose around you? Never 04/02/2024 Food Risk [...] care for your loved ones. For example, early childhood specialist or elderly care for an older adult? [...] on file Sexual Orientation Not on file Obstetrics History Last Filed Vital Signs Vital Sign Reading Time Taken Comments Blood Pressure 154/90 03/29/2025 3:28 PM EST Pulse 56 03/29/2025 3:09 PM EST Temperature 36.2 C (97.2 F) 03/29/2025 3:09 PM EST Respiratory Rate 14 03/29/2025 3:09 PM EST Oxygen Saturation 100% 03/17/2025 3:02 PM EDT Inhaled Oxygen Concentration - - Weight 112 kg (246 lb) 03/29/2025 3:09 PM EST Height 179.1 cm (5' 10.5 ) 03/29/2025 3:09 PM ES T Body Mass Index 34.8 03/29/2025 3:09 PM EST Plan of Treatment Upcoming Encounters Date Type Department Care Team (Late st Contact Info) Description 04/26/2025 3:30 PM EST Office Visit Adult Medicine [facility] [address] [place] [phone] Sandra Titus PA [address] [place] [address] 03/23/2026 3:00 PM EST Office Visit [facility] Hematology Oncology [address] [place] [phone] Desiree Cuellar PA [address] [place] [address] Health Maintenance Due Date Last Done Comments Colorectal Cancer Screening: Colonoscopy 1975 Hepatitis B Vaccines (1 of 3 - 19+ 3-dose series) 12/25/1994 HIV Screening 04/20/2022 Hepatitis C Screening 04/20/2022 COVID-19 Vaccine ( season) 2025 01/31/2024, 05/24/2021, 08/15/2020, Additional history exists Social Influencers of Health Screening 04/02/2025 04/02/2024 Hypertension/CHF/CAD Annual BMP Blood Test 04/06/2025 04/06/2024, 03/12/2023 Cholesterol Screening (Lipid Panel) 04/06/2029 04/06/2024, 08/14/2018, 08/11/2018 DTaP,Tdap,and Td Vaccines (2 - Td or Tdap) 04/18/2031 04/18/2021 RSV Immunization Adult Patients (1 - 1-dose 75+ series) 12/25/2050 Influenza Vaccine Completed 01/28/2025, , 02/10/2023, Additional history exists Depression Screening Completed 02/10/2025 HIB Vaccines Aged Out No longer eligi ble based on patient's age to complete this topic HPV Vaccines Aged Out No longer eligi ble based on patient's age to complete this topic Hepatitis A Vaccines Aged Out No long er eligible based on patient's age to complete this topic IPV Vaccines Aged Out No longer eligi ble based on patient's age to complete this topic MMR Vaccines Aged Out No longer eligi ble based on patient's age to complete this topic Meningococcal ACWY Vaccine Aged Out N o longer eligible based on patient's age to complete this topic Meningococcal B Vaccine Aged Out No l onger eligible based on patient's age to complete this topic Pneumococcal Vaccine: Pediatrics (0 to 5 Years) and At-Risk Patients (6 to 49 Years) Aged Out No longer eligible based on patient's age to complete this topic RSV Immunization Patients Under 20 months Aged Out No longer eligible based on patient's age to complete this topic Varicella Vaccines Aged Out No longer eligible based on patient's age to complete this topic Procedures Procedure Name Priority Date/Time Associated Diagnosis Comments EXTERNAL XRAY REPORT 03/25/2025 EXTERNAL XRAY REPORT 03/25/2025 MR BRAIN WO AND W CONTRAST Routine 03/16/2025 4:06 PM EDT Phantosmia CBC WITH AUTO DIFFERENTIAL Routine 03/10/2025 2:14 PM EDT Iron deficiency anemia due to chronic blood loss History of GI bleed History of gastric ulcer Low serum vitamin B12 CBC AND DIFFERENTIAL Routine 03/10/2025 2:14 PM EDT Iron deficiency anemia due to chronic blood loss History of GI bleed History of gastric ulcer Low serum vitamin B12 VITAMIN B12 AND FOLATE Routine 2:14 PM EDT Iron deficiency anemia due to chronic blood loss History of GI bleed History of gastric ulcer Low serum vitamin B12 IRON AND TIBC Routine 03/10/2025 2:14 PM EDT Iron deficiency anemia due to chronic blood loss History of GI bleed History of gastric ulcer Low serum vitamin B12 FERRITIN Routine 03/10/2025 2:14 PM EDT Iron deficiency anemia due to chronic blood loss History of GI bleed History of gastric ulcer Low serum vitamin B12 COMPREHENSIVE METABOLIC PANEL Routine 04/06/2024 10:26 AM EST Essential hypertension PE (physical exam), annual LIPID PANEL WITH REFLEX TO DIRECT LDL Routine 04/06/2024 10:26 AM EST PE (physical exam), annual from Last 3 Months or Most Recently Relevant to Health Maintenance Results * External Xray Report (03/25/2025) Only the most recent of2 resultswithin the time period is included. Anatomical Region Laterality Modality Radiographic Amy ging us Provider [facility] IM[facility] XR PROCEDURES Final Result * MR Brain wo and w Contrast (03/16/2025 4:06 PM EDT) Anatomical Region Laterality Modality Head and Neck Magnetic Resonan ce 03/17/2025 3:23 PM EDT Impressions 03/17/2025 5:10 PM EDT Impression: No acute intracranial abnormality. -------- FINAL REPORT -------- Dictated By: Dev Granger Dictated Date: 03/17/2025 15:23 ET Assigned Physician: Dev Granger Reviewed and Electronically Signed By: Dev Granger Signed Date: 03/17/2025 17:10 ET Workstation ID: [id number] Transcribed By: Self Edit Transcribed Date: 03/17/2025 15:25 ET Narrative 03/17/2025 5:10 PM EDT MRI BRAIN WITH AND WITHOUT CONTRAST Clinical Statement: phantosmia Comparison: None Technique: Multiplanar, multisequence MR images of the brain were obtained prior to and following the uneventful intravenous administration of 20 mL of Dotarem Findings: There is no evidence of diffusion restriction. No intracranial hemorrhage. Brain parenchyma is within normal limits. The craniocervical junction is normal. The ventricular system is normal in size and morphology. The basilar cisterns are normal. There is no evidence of abnormal intracranial enhancement. The orbits and globes are within normal limits. Mucosal thickening within the paranasal sinuses. Procedure Note Dev Granger MD - 03/17/2025 MRI BRAIN WITH AND WITHOUT CONTRAST Clinical Statement: phantosmia Comparison: None Technique: Multiplanar, multisequence MR images of the brain wereobtained prior to and following the uneventful intravenous administrationof 20 mL of Dotarem Findings: There is no evidence of diffusion restriction. No intracranialhemorrhage. Brain parenchyma is within normal limits. The craniocervicaljunction is normal. The ventricular system is normal in size andmorphology. The basilar cisterns are normal. There is no evidence ofabnormal intracranial enhancement. The orbits and globes are withinnormal limits. Mucosal thickening within the paranasal sinuses. IMPRESSION: Impression: No acute intracranial abnormality. -------- FINAL REPORT -------- Dictated By: Dev Granger Dictated Date: 03/17/2025 15:23 ET Assigned Physician: Dev Granger Reviewed and Electronically Signed By: Dev Granger Signed Date: 03/17/2025 17:10 ET Workstation ID: [id number] Transcribed By: Self Edit Transcribed Date: 03/17/2025 15:25 ET Sandra KHAN IMG MRI PROCEDURES Final Resul t * Vitamin B12 and folate (03/10/2025 2:14 PM EDT) Vitamin B-12 418 250 - 900 pcg/mL LAB CHEMISTRY METHOD 03/10/2025 5:56 PM EDT [facility] Folate 17.0 2.8 - 17.0 ng/ml LAB CHEMISTRY METHOD 03/10/2025 5:56 PM EDT [facility] Blood Venous blood specimen / Unknown Venipuncture / Unknown 03/10/2025 2:14 PM EDT 03/10/2025 2:14 PM EDT Desiree KHAN LAB BLOOD ORDERABLES Final Re sult [facility] [address] [place] [address], * (ABNORMAL) CBC auto differential (03/10/2025 2:14 PM EDT) WBC 9.3 4.8 - 10.8 K/mcL LAB HEMETOLOGY METHOD 03/10/2025 4:16 PM EDT [facility] RBC 5.00 4.50 - 5.50 M/mcL LAB HEMETOLOGY METHOD 03/10/2025 4:16 PM EDT [facility] Hemoglobin 15.0 13.5 - 17.5 g/dL LAB HEMETOLOGY METHOD 03/10/2025 4:16 PM EDT [facility] Hematocrit 45.0 42.0 - 54.0 % LAB HEMETOLOGY METHOD 03/10/2025 4:16 PM EDT [facility] MCV 89.3 79.0 - 98.0 FL LAB HEMETOLOGY METHOD 03/10/2025 4:16 PM EDT [facility] MCH 29.8 27.0 - 32.0 pcg LAB HEMETOLOGY METHOD 03/10/2025 4:16 PM EDT [facility] MCHC 33.3 32.0 - 37.0 g/dL LAB HEMETOLOGY METHOD 03/10/2025 4:16 PM EDT [facility] RDW 13.2 11.0 - 15.0 % LAB HEMETOLOGY METHOD 03/10/2025 4:16 PM EDT [facility] Platelets 255 130 - 400 K/mcL LAB HEMETOLOGY METHOD 03/10/2025 4:16 PM EDT [facility] MPV 9.1 7.0 - 11.0 FL LAB HEMETOLOGY METHOD 03/10/2025 4:16 PM EDT [facility] NRBC 0.0 <1.0 % LAB [facility]EMETOLOGY [facility] NR[facility] Absolute 0.00 <0.10 K/mcL LAB HEMETOLOGY METHOD 03/10/2025 4:16 PM [facility] Neutrophils Relative 69.1 % LAB HEMETOLOGY METHOD 03/10/2025 4:16 PM [facility] Lymphocytes Relative 15.8 % LAB HEMETOLOGY METHOD 03/10/2025 4:16 PM [facility] Monocytes Relative 11.1 % LAB HEMETOLOGY METHOD 03/10/2025 4:16 PM [facility] Eosinophils Relative 2.7 % LAB HEMETOLOGY METHOD 03/10/2025 4:16 PM [facility] Basophils Relative 0.9 % LAB HEMETOLOGY METHOD 03/10/2025 4:16 PM [facility] Immature Granulocytes Relative 0.4 % LAB HEMETOLOGY METHOD 03/10/2025 4:16 PM [facility] Neutrophils Absolute 6.45 1.50 - 7.00 K/mcL LAB HEMETOLOGY METHOD 03/10/2025 4:16 PM [facility] Lymphocytes Absolute 1.47 1.00 - 5.00 K/mcL LAB HEMETOLOGY METHOD 03/10/2025 4:16 PM [facility] Monocytes Absolute 1.04(H) 0.20 - 1.00 K/mcL LAB HEMETOLOGY METHOD 03/10/2025 4:16 PM [facility] Eosinophils Absolute 0.25 0.00 - 0.50 K/mcL LAB HEMETOLOGY METHOD 03/10/2025 4:16 PM [facility] Basophils Absolute 0.08 0.00 - 0.20 K/mcL LAB HEMETOLOGY METHOD 03/10/2025 4:16 PM EDT [facility] Immature Granulocytes Absolute 0.04(H) 0.00 - 0.03 K/mcL LAB HEMETOLOGY METHOD 03/10/2025 4:16 PM EDT [facility] Blood Venous blood specimen / Unknown Venipuncture / Unknown 03/10/2025 2:14 PM EDT 03/10/2025 2:14 PM EDT Desiree KHAN LAB BLOOD ORDERABLES Final Re sult [facility] [address] [place] [address], [place] [phone] * Iron and TIBC (03/10/2025 2:14 PM EDT) Iron 110 50 - 160 mcg/dL LAB CHEMISTRY METHOD 03/10/2025 4:58 PM EDT [facility] TIBC 348 250 - 450 mcg/dL LAB CHEMISTRY METHOD 03/10/2025 4:58 PM EDT [facility] Iron Saturation 32 20 - 50 % LAB CHEMISTRY METHOD 03/10/2025 4:58 PM EDT [facility] Blood Venous blood specimen / Unknown Venipuncture / Unknown 03/10/2025 2:14 PM EDT 03/10/2025 2:14 PM EDT Desiree KHAN LAB BLOOD ORDERABLES Final Re sult [facility] [address] [place] [address], [place] [phone] * Ferritin (03/10/2025 2:14 PM EDT) Ferritin 64 26 - 388 ng/mL LAB CHEMISTRY METHOD 03/10/2025 5:56 PM EDT [facility] Blood Venous blood specimen / Unknown Venipuncture / Unknown 03/10/2025 2:14 PM EDT 03/10/2025 2:14 PM EDT us Desiree KHAN LAB BLOOD ORDERABLES Final Re sult Performing Organization Address City/[facility]/ZIP Co de Phone Number [facility] [address] [place] [address], [place] [phone] * (ABNORMAL) Lipid panel with reflex to direct LDL (04/06/2024 10:26 AM EST) Cholesterol 201(H) 0 - 200 mg/dL LAB CHEMISTRY METHOD 04/06/2024 3:26 PM EST [facility] Triglycerides 105 0 - 150 mg/dL LAB CHEMISTRY METHOD 04/06/2024 3:26 PM EST [facility] HDL 45 >=40 mg/dL LAB CHEMISTRY METHOD 04/06/2024 3:26 PM EST [facility] LDL Calculated 135(H) 0 - 100 mg/dL LAB CHEMISTRY METHOD 04/06/2024 3:26 PM EST [facility] VLDL Cholesterol Igor 21 mg/dL LAB CHEMISTRY METHOD 04/06/2024 3:26 PM EST [facility] Non HDL Chol. (LDL+VLDL) 156(H) <145 mg/dL LAB CHEMISTRY METHOD 04/06/2024 3:26 PM EST [facility] Chol/HDL Ratio 4.5(H) 0.0 - 4.4 LAB CHEMISTRY METHOD 04/06/2024 3:26 PM [facility] Blood Venous blood specimen / Unknown Venipuncture / Unknown 04/06/2024 10:26 AM EST 04/06/2024 10:26 AM EST us Darlin Moreno MD LAB BLOOD ORDERABLES Final Resul t [facility] [address] [place] [address], [place] [phone] * (ABNORMAL) Comprehensive metabolic panel (04/06/2024 10:26 AM EST) Sodium 135 133 - 145 mmol/L LAB CHEMISTRY METHOD 04/06/2024 3:26 PM [facility] Potassium 4.1 3.5 - 5.5 mmol/L LAB CHEMISTRY METHOD 04/06/2024 3:26 PM [facility] Chloride 101 96 - 110 mmol/L LAB CHEMISTRY METHOD 04/06/2024 3:26 PM [facility] CO2 29 21 - 32 mmol/L LAB CHEMISTRY METHOD 04/06/2024 3:26 PM [facility] Anion Gap 5 3 - 11 LAB CHEMISTRY METHOD 04/06/2024 3:26 PM [facility] Glucose 95 70 - 100 mg/dL LAB CHEMISTRY METHOD 04/06/2024 3:26 PM [facility] BUN 11 5 - 25 mg/dL LAB CHEMISTRY METHOD 04/06/2024 3:26 PM [facility] Creatinine 0.96 0.70 - 1.30 mg/dL LAB CHEMISTRY METHOD 04/06/2024 3:26 PM [facility] eGFR 98 >=60 mL/min/1. 73m2 LAB CHEMISTRY METHOD 04/06/2024 3:26 PM [facility] Comment:Calculation based on the Chronic Kidney Disease Epidemiology Collaboration (CKD-EPI) equation refit without adjustment for race. BUN/Creatinine Ratio 11.5 LAB CHEMISTRY METHOD 04/06/2024 3:26 PM [facility] Calcium 10.0 8.5 - 10.5 mg/dL LAB CHEMISTRY METHOD 04/06/2024 3:26 PM [facility] AST (SGOT) 27 10 - 42 unit/L LAB CHEMISTRY METHOD 04/06/2024 3:26 PM [facility] ALT (SGPT) 27 10 - 60 unit/L LAB CHEMISTRY METHOD 04/06/2024 3:26 PM EST [facility] Alkaline Phosphatase 61 42 - 121 unit/L LAB CHEMISTRY METHOD 04/06/2024 3:26 PM [facility] Total Protein 8.3(H) 6.0 - 8.0 g/dL LAB CHEMISTRY METHOD 04/06/2024 3:26 PM EST [facility] Albumin 4.2 3.2 - 5.0 g/dL LAB CHEMISTRY METHOD 04/06/2024 3:26 PM [facility] Total Bilirubin 0.7 0.0 - 1.4 mg/dL LAB CHEMISTRY METHOD 04/06/2024 3:26 PM [facility] Blood Venous blood specimen / Unknown Venipuncture / Unknown 04/06/2024 10:26 AM EST 04/06/2024 10:26 AM EST us Darlin Moreno MD LAB BLOOD ORDERABLES Final Resul t [facility] [address] [place] [address], from Last 3 Months or Most Recently Relevant to Health Maintenance Insurance [facility] Care Teams Line Director Relationship Specialty Start Date End Date Darlin Moreno MD [address] [place] [address] PCP - General Internal Medicine 03/25/24
--- OUTSIDE RECORDS SUMMARY | 2025-04-20 17:00 | XMS_ITS | Encounter Summary ---
Author Organization [facility] Address [address] [place] [address] Care Team Providers Care Bulk Intake Worker Name Role Phone Darlin Moreno MD Primary Care Provider [phone] Encounter Details Date Type Department Care Team ([facility] st Contact Info) Description 03/23/2025 Results Follow-Up Adult Medicine [address] [phone] Sandra iTtus PA [address] [place] [address] Social History Tobacco Use Types Packs/Day Years [...] care for your loved ones. For example, children's counselor or elderly care for an older adult? [...] on file documented as of this encounter Plan of Treatment Upcoming Encounters Date Type Department Care Team (Late st Contact Info) Description 04/26/2025 3:30 PM EST Office Visit Adult Medicine [address] [phone] Sandra Titus PA [address] [place], [place] 03/23/2026 3:00 PM EST Office Visit [facility] Hematology Oncology [address] [place] [phone] Desiree Cuellar PA [address] [place] [address] documented as of this encounter Visit Diagnoses Not on filedocumented in this encounter Additional Health Concerns Assessment Noted Time PHQ-9 Depression Total Score: 0 02/11/20 2:45 PM EDT documented as of this encounter Care Teams Bulk Intake Worker Relationship Specialty Start Date End Date Darlin Moreno MD [address] [place] [address] PCP - General Internal Medicine 03/25/24 documented as of this encounter
== END 2025-04-20 14:42 | disposition home or self-care (01) ==
LOC: HO.HOS 14:07
PROVIDERS: PCP Internal Medicine; Visit Provider Orthopaedic Surgery
DX: S83.242A Other tear of medial meniscus, current injury, left knee, initial encounter (principal)
CPT/HCPCS: 99203; G2211

== ENCOUNTER → 2025-04-20 14:11 | Outpatient (BNV) | payer OTHER, SELFPAY | PROVIDERS: Visit Provider Radiology Diagnostic Radiology | DX: M25.562 Pain in left knee (principal) | CPT/HCPCS: 73562 ==

== ENCOUNTER → 2025-04-29 08:14 | Outpatient (BNVA) | payer OTHER, SELFPAY | PROVIDERS: Visit Provider Internal Medicine | DX: M23.92 Unspecified internal derangement of left knee (principal) | CPT/HCPCS: 99213 ==